=== PATIENT | male | born 1945 | race Caucasian/White ===

== ENCOUNTER 2019-07-13 17:36 | Inpatient (IN) | payer MEDICARE, OTHER ==
[2019-07-13] MEDS ORDERED: Acetaminophen 500 MG TAB ONE (18:00)
[2019-07-13 18:11] LABS: Hemoglobin 12.3 g/dL (14.0-18.0); Mean Corpuscular HGB CONC 34.4 g/dL (32.0-36.0); Mean Platelet Volume 7.5 fL (7.4-10.4); Platelet Count 63 thou/uL (130-400); RBC Distribution Width 14.2 % (11.5-14.5); Red Blood Cell (RBC) Count 3.33 mill/uL (4.70-6.10); White Blood Cell (WBC) Count 9.5 thou/uL (4.8-10.8)
--- NOTE | 2019-07-13 18:26 | RAD ---
PORTABLE CHEST: 07/13/19 HISTORY: Syncope. History of seizures. FINDINGS/IMPRESSION: Heart size is upper limits of normal. There are atherosclerotic changes of the aorta. The lungs are c lear. Of infiltrates. The bones are demineralized. POS: [facility]
[2019-07-13 18:28] LABS: ALT (SGPT) 24 U/L (8-55); AST (SGOT) 35 U/L (5-34); Albumin 4.4 g/dL (3.4-4.8); Alkaline Phosphatase 83 U/L (40-110); Anion Gap 22 mmol/L (10-20); BUN (Urea Nitrogen) 18 mg/dL (8.4-25.7); Bilirubin, Total 1.2 mg/dL (0.2-1.2); Calc. Creatinine Clearance 0 mL/min (70-130); Calcium 10.8 mg/dL (7.8-10.44); Carbon Dioxide 17 mmol/L (23-31); Chloride 105 mmol/L (98-107); Estimated GFR-MDRD 46; Globulin 3.7 g/dL (2.4-3.5); Glucose 180 mg/dL (83-110); Potassium 3.9 mmol/L (3.5-5.1); Protein, Total 8.1 g/dL (5.8-8.1); Sodium 140 mmol/L (136-145)
[2019-07-13 18:35] LABS: #Basophils 0.1 thou/uL (0.0-0.2); #Lymphocytes 0.8 thou/uL (1.20-3.40); #Monocytes 0.6 thou/uL (0.11-0.59); #Neutrophils 7.9 thou/uL (1.40-6.50); %Basophils 1.5 % (0.0-1.0); %Eosinophils 0.1 % (0.0-10.0); %Lymphocytes 8.7 % (21.0-51.0); %Monocytes 6.5 % (0.0-10.0); %Neutrophils 83.1 % (42.0-75.0); MDiff Complete? YES; Macrocytosis SLIGHT = 6-15 cells (100X) (0-5/hpf); Platelet Morphology Comment Appears Decreased; Polychromasia SLIGHT = 2-3 cells (100X) (0-2/hpf)
[2019-07-13] MEDS ORDERED: Vancomycin 1 GM/200 ML BAG ONE (18:47)
[2019-07-13] MEDS ORDERED: Cefepime 2 GM VIAL ONE (18:47)
[2019-07-13 18:55] LABS: Acetaminophen Less than 6.0 mcg/mL (10.0-30.0); Alcohol Less than 10 mg/dL (Less than 10); Salicylate Less than 8.0 mg/dL (15.0-30.0)
[2019-07-13 18:57] LABS: Bacteria/HPF None Seen HPF (None Seen); Bilirubin Negative (Negative); Blood, Urine 1+ (Negative); Clarity Clear (Clear); Glucose, Urine (Dipstick) 300 mg/dL (Negative); Leukocyte Negative Leu/uL (Negative); Nitrite Negative (Negative); Protein, Urine (Dipstick) 30 mg/dL (Neg-Trace); RBC/HPF 0-3 HPF (0-3); Squamous Epithelial 0-3 HPF (0-3); Urobilinogen Normal mg/dL (Less than 2); WBC/HPF 0-3 HPF (0-3)
[2019-07-13] MEDS ORDERED: Lorazepam 2 MG/ML VIAL ONE (19:00)
--- NOTE | 2019-07-13 19:07 | CT ---
Head CT without contrast 07/13/2019: Comparison: None HISTORY: Seizure TECHNIQUE: Axial CT imaging at 5 mm intervals from vertex through skull base without contrast FINDINGS: Visualized paranasal sinuses and mastoid air cells are well aerated. No displaced calvarial fracture. There is moderate diffuse cerebral and cerebellar volume loss. There is vascular calcification involving the cavernous carotid arteries and the distal vertebral arteries. No intracranial hemorrhage, midline shift, or mass effect. IMPRESSION: No intracranial hemorrhage noted.
[2019-07-13] MEDS ORDERED: levETIRAcetam 1000 MG/100 ML PREMIX BAG ONE (19:17)
[2019-07-13] MEDS ORDERED: Magnesium 2 GM/50 ML BAG (IN WATER) ONE (19:23)
[2019-07-13] MEDS ORDERED: Diltiazem 125 MG in Sodium Chloride 0.9% 100 ML IVPB SCH (20:15)
[2019-07-13 21:10] LABS: Lactic Acid 3.1 mmol/L (0.5-2.2)
[2019-07-13] MEDS ORDERED: Acetaminophen 650 MG Suppository ONE (23:04)
[2019-07-13] MEDS ORDERED: Ondansetron PF 4 MG/2 ML Vial IVP PRN (23:53)
[2019-07-13] MEDS ORDERED: Calcium Carbonate 500 MG ChewTAB PO PRN (23:53)
[2019-07-13] MEDS ORDERED: Acetaminophen 325 MG TAB PO PRN (23:53)
[2019-07-13] MEDS ORDERED: Ondansetron ODT 4 MG TAB PO PRN (23:53)
--- NOTE | 2019-07-14 00:03 | PDOC.FPRHP ---
- History of Present Illness Chief Complaint: Seizure History of Present Illness: 74yo CF with h/o seizure disorder presented via EMS with chief complaint of seizure. History obtained from son at bedside and ERMD as patient is alerted and A/O x0 at presentation. Son recently drove in from [place] to check on patient earlier today as patient stated he had been feeling unwell with increased fatigue over the past few days and wanted to be taken to the ER for evaluation. When son arrived, patient was weak, unsteady, and slightly confused but A/O x3. En route to ED, patient had seizure in the car. Son states patient gripped his R axilla and then had approx 30s of tonic-clonic movements and then passed out. He pulled to the side of the road and called EMS who transported to [facility]. Son states patient is usually A/O x3 and has no baseline dementia. He has a known seizure disorder and is followed by 2 different neurologist, one in [place] and one at [facility] in [place]. Son is unsure of all details but states patient was recently on a keppra wean. Son states patient had a very similar event to current presentation 2-3 years ago and at that time was placed on keppra. Son also states patient is recently 9mos ago and may have been drinking more of late, but unsure exact amount, but no history of EtOH abuse and no alcohol in the home today. ED Course: In the ED, his heart rate went from 100 to 180 and EKG was c/w SVT. Pt was given dilt iv push and then started on a dilt gtt with resolution of SVT. BCx and UCx obtained. COVID swab obtained. LP was attempted, however no CSF was able to be collected. Patient given Vanc and Cefepime Keppra 1g, Magnesium 1g, NS - Allergies/Adverse Reactions Allergies Allergy/AdvReac Type Severity Reaction Status Date / Time Unable to Assess Allergy Verified 07/13/19 20:03 - Home Medications Medication Instructions Recorded Confirmed Type Hydrochlorothiazide 12.5 mg PO DAILY 07/14/19 07/14/19 History Losartan [Cozaar] 50 mg PO DAILY 07/14/19 07/14/19 History Tamsulosin HCl 0.4 mg PO HS 07/14/19 07/14/19 History levETIRAcetam [Keppra] 500 mg PO BID 07/14/19 07/14/19 History - History PMHx: HTN, seizure disorder PSHx: Appy FHx: Unknown Social: From Son - recently . Lives alone. No Tob or illicit drug use. Unknown amount of EtOH use but no h/o abuse. - Review of Systems ROS unobtainable: due to mental status - Vital signs BP: 139/80 HR: 97 RR: 26 Tmax: 102.4 Pox: 97% on RA Wt: 79kg - Physical Exam Constitutional: NAD, well developed, other (A/O x0, GCS 12) HEENT: normocephalic and atraumatic, PERRLA, MMM Neck: supple, trachea midline Heart: RRR, normal S1/S2, no murmurs/rubs/gallops, pulses present, no edema Lungs: CTAB, no respiratory distress, good air movement, no rales/rhonchi, no wheezing Abdomen: soft, non-tender, bowel sounds present, no masses/distention Musculoskeletal: normal structure, normal tone Neurological: other (unable to fully assess due to mentation. Moves all ext spontaneously) Skin: no rash/lesions Heme/Lymphatic: no unusual bruising or bleeding Psychiatric: other (A/O x0) FMR H&P: Results - Labs Result Diagrams: 07/14/19 01:51 07/14/19 01:51 Lab results: WBC 9.5 thou/uL (4.8-10.8) 07/13/19 17:56 Hgb 12.3 g/dL (14.0-18.0) L 07/13/19 17:56 Hct 35.8 % (42.0-52.0) L 07/13/19 17:56 MCV 107.0 fL (78.0-98.0) H 07/13/19 17:56 Plt Count 63 thou/uL (130-400) L 07/13/19 17:56 Neutrophils % 83.1 % (42.0-75.0) H 07/13/19 17:56 Sodium 140 mmol/L (136-145) 07/13/19 17:56 Potassium 3.9 mmol/L (3.5-5.1) 07/13/19 17:56 Chloride 105 mmol/L (98-107) 07/13/19 17:56 Carbon Dioxide 17 mmol/L (23-31) L 07/13/19 17:56 BUN 18 mg/dL (8.4-25.7) 07/13/19 17:56 Creatinine 1.49 mg/dL (0.7-1.3) H 07/13/19 17:56 Glucose 180 mg/dL (83-110) H 07/13/19 17:56 Lactic Acid 3.1 mmol/L (0.5-2.2) H 07/13/19 20:47 Calcium 10.8 mg/dL (7.8-10.44) H 07/13/19 17:56 Total Bilirubin 1.2 mg/dL (0.2-1.2) 07/13/19 17:56 AST 35 U/L (5-34) H 07/13/19 17:56 ALT 24 U/L (8-55) 07/13/19 17:56 Alkaline Phosphatase 83 U/L (40-110) 07/13/19 17:56 Ammonia 31 umol/L (18-72) 07/13/19 17:56 Serum Total Protein 8.1 g/dL (5.8-8.1) 07/13/19 17:56 Albumin 4.4 g/dL (3.4-4.8) 07/13/19 17:56 Urine Ketones 40 mg/dL (Negative) A 07/13/19 18:23 Urine Blood 1+ (Negative) A 07/13/19 18:23 Urine Nitrite Negative (Negative) 07/13/19 18:23 Ur Leukocyte Esterase Negative Jacinta/uL (Negative) 07/13/19 18:23 Urine RBC 0-3 HPF (0-3) 07/13/19 18:23 Urine WBC 0-3 HPF (0-3) 07/13/19 18:23 Ur Squamous Epith Cells 0-3 HPF (0-3) 07/13/19 18:23 Urine Bacteria None Seen HPF (None Seen) 07/13/19 18:23 - EKG Interpretation EKG: Initial EKG: Sinus tachycardia with rate 117, no ST or T wave changes, axis normal Repeat EKG: SVT, rate 178, no acute ST or T wave changes, axis normal 3rd EKG: Sinus tachycardia, rate 113, no acute ST or T wave changes - Radiology Interpretation CT scan - head Status: report reviewed by me (no acute intracranial process) Chest x-ray Status: image reviewed by me (No acute CPP), report reviewed by me FMR H&P: A/P - Problem List (1) Seizure Current Visit: Yes Status: Acute Code(s): R56.9 - UNSPECIFIED CONVULSIONS (2) SVT (supraventricular tachycardia) Current Visit: Yes Status: Acute Code(s): I47.1 - SUPRAVENTRICULAR TACHYCARDIA (3) SIRS (systemic inflammatory response syndrome) Current Visit: Yes Status: Acute Code(s): R65.10 - SIRS OF NON-INFECTIOUS ORIGIN W/O ACUTE ORGAN DYSFUNCTION - Plan 74yo CF with h/o seizure disorder presented via EMS with chief complaint of seizure. #Seizure - known underlying seizure disorder with recent taper of keppra - underlying seizure disorder vs meningitis vs other infectious etiology - Unsuccessful LP in ED, ordered CT-guided LP by IR in AM - s/p Vanc and cefepime in ED, will cont vanc + rocephin - BCx pending - UA 40 ketones, 1+ blood, neg bacteria, neg nitrites, neg LE. UCx pending - CSF Gram stain, cell count, protein, glucose, and Cx pending - Given keppra loading dose in ED, will cont 500mg IV BID - consider neurology consult #SVT - suspected 2/2 infection - given loading dilt and on dilt gtt - monitor on tele - will titrate off dilt gtt as appropriate - cont MIVF #SIRS without source - BCx, UCx pending - LP in AM with studies - exam without focal source of infection - COVID pending #Lactic Acidosis - LA 6.7 -> 3.1 - seizure vs infectious, will trend #COVID PUI - Pending - will obtain flu swab #Acute encephalopathy - suspect post-ictal vs infectious - will cont to monitor mentation - A/O x3 at baseline #AZAM vs CKD - Cr 1.49, BUN 18 - no baseline labs available for comparison - s/p IV bolus in ED, will cont MIVF and monitor #HTN - cont home meds and monitor #Potential EtOH abuse - EtOH lv neg, ASA and APAP lv neg - LFTS WNL - low suspicion, will monitor PCP: CC - None Code: Full - per son, patient unable to make medical decisions 03/21 mentation IVF: LR @ 120cc/hr Diet: NPO pending speech eval VTE: Lovenox Disposition/LOS: Admit to CCU. Workup pending. Anticipate LOS >48hrs. FMR H&P: Upper Level - Pertinent history 74 yo M here via EMS with complaint of seizure. At the time of exam, put is A& Ox0 and all hx comes from his son. His son states that he had not been feeling well for the past few days and asked that he be taken to the ER. His symptoms leading up to today include general malaise and unsteadiness. While in route pt had a seizure in the vehicle. The son called EMS from roadside who met them and brought him the rest of the way her. Per son, he has a hx of a seizure disorder which has had work up by 2 different neurologists outpatient. He had apparently been tapering his keppra at home. In the ED, his heart rate went from 100 to 180 and EKG was c/w SVT. Pt was given dilt iv push and then started on a dilt gtt with resolution of SVT. Also of note pt had been drinking wine more often recently since the passing of his , however the son does not know how much and pt does not have a hx of etoh abuse. There was apparently no alcohol in the home today. In the ED blood and urine cultures were drawn and pt was swabbed for COVID19. LP was attempted, however no CSF was able to be collected. PMHx HTN Seizure disorder nos BPH Surgical hx Appendectomy Social hx Intermittent etoh use. No tobacco or illicit drugs. - Pertinent findings See commander internal affairs note for full ROS, PE, vitals, and labs ROS via son General denies fever or chills. Complains of disorientation CV Denies CP, palpitation, or peripheral edema Resp Denies SOB or cough GI Denies n/v/d/c denies increased frequency or dysuria Neuro complains of seizure PE General A&O x0, will answer questions however answers are inappropriate HEENT NCAT CV tachycardic, no murmur Resp CTA, no respiratory distress Abd Non tender normal BS no distension Extremities no edema, equal pedal pulses Neuro no focal deficits Skin intact, no lesions or rashes - Plan Date/Time: 07/14/19 Larry León DO, have evaluated this patient and agree with findings/plan as outlined by commander internal affairs resident. Pertinent changes/additions are listed here. 1.SIRS -Infectious etiology vs seizure. Unclear source at time, if infectious DDx includes meningitis, bacteremia, PNA, COVID19, other viral infection. -Continue abx until cultures result. Will plan for IR LP tomorrow. -Currently hemodynamically stable -RVP pending -Bolus IVF to complete 30 mg/kg resuscitation 2.Seizure disorder -Restart home keppra. This could certainly be the source of his AMS. Consider neuro consult 3.SVT, resolved -Monitor on tele 4.HTN -Home meds PPx lovenox Diet NPO Code Full Addendum - Attending - Attending Attestation Date/Time: 07/14/19 4942 I personally evaluated the patient and discussed the management with Dr. Canada and Violet in the ER at time of admission. I agree with the History, Examination, Assessment and Plan documented above with any addition or exceptions noted below. Discussed car eplan with son who was present. Etiology of infectious cause of fever unknoen. Empiricla tx inititated and tests underway. Mental status slightly improved from earlier. He is responding with single words appropriately, but somnolent.
[2019-07-14] MEDS: cefTRIAXone\\ROCEPHIN 2 GM in Sodium Chloride 0.9% 100 ML IVPB SCH ×2 (00:37→11:51)
[2019-07-14] MEDS: Lactated Ringer's 1,000 ML IV SCH ×4 (00:37→20:01)
[2019-07-14 02:02] LABS: #Lymphocytes 0.4 thou/uL (1.20-3.40); #Monocytes 0.9 thou/uL (0.11-0.59); #Neutrophils 5.2 thou/uL (1.40-6.50); %Basophils 0.3 % (0.0-1.0); %Eosinophils 0.1 % (0.0-10.0); %Lymphocytes 5.9 % (21.0-51.0); %Monocytes 14.4 % (0.0-10.0); %Neutrophils 79.3 % (42.0-75.0); Hemoglobin 10.5 g/dL (14.0-18.0); Mean Corpuscular HGB CONC 34.1 g/dL (32.0-36.0); Mean Corpuscular Hemoglobin 36.6 pg (27.0-31.0); Mean Platelet Volume 7.6 fL (7.4-10.4); Platelet Count 45 thou/uL (130-400); RBC Distribution Width 14.1 % (11.5-14.5); Red Blood Cell (RBC) Count 2.88 mill/uL (4.70-6.10); White Blood Cell (WBC) Count 6.5 thou/uL (4.8-10.8)
[2019-07-14 02:34] LABS: Anion Gap 14 mmol/L (10-20); BUN (Urea Nitrogen) 15 mg/dL (8.4-25.7); Calc. Creatinine Clearance 54 mL/min (70-130); Calcium 9.2 mg/dL (7.8-10.44); Carbon Dioxide 21 mmol/L (23-31); Chloride 107 mmol/L (98-107); Estimated GFR-MDRD 58; Glucose 121 mg/dL (83-110); Potassium 3.4 mmol/L (3.5-5.1); Sodium 139 mmol/L (136-145)
[2019-07-14] MEDS: Vancomycin 1.5 GRAM/300 ML BAG 1.5 GM in Premix Bag 1 BAG IVPB SCH (05:16)
--- NOTE | 2019-07-14 06:12 | PDOC.FM ---
- Subjective Subjective: Pt states he does not know why he is here this morning. He denies chest pain, trouble breathing, headache, weakness, changes in sensation. - Objective MAR Reviewed: Yes Vital Signs & Weight: Vital Signs (12 hours) Temp Pulse Ox 07/14/19 05:00 98.5 F 07/14/19 00:25 98 07/13/19 23:45 99.3 F Weight Weight 74.4 kg Most Recent Monitor Data Heart Rate from ECG 74 NIBP 127/71 NIBP BP-Mean 89 Respiration from ECG 23 SpO2 98 I&O: 07/12/19 07/13/19 07/14/19 06:59 06:59 06:59 Intake Total 658 Balance 658 Result Diagrams: 07/14/19 01:51 07/14/19 01:51 Phys Exam - Physical Examination Constitutional: NAD HEENT: PERRLA, moist MMs, oral pharynx no lesions Neck: no JVD, full ROM Respiratory: no wheezing, clear to auscultation bilateral Cardiovascular: RRR, no significant murmur Gastrointestinal: soft, non-tender, no distention, positive bowel sounds Musculoskeletal: no edema, pulses present Neurological: normal sensation, moves all 4 limbs Deviation from normal: Oriented to person and place, not to time, answer questions correct, Speech appears to be normal Skin: cap refill <2 seconds Dx/Plan (1) SIRS (systemic inflammatory response syndrome) Code(s): R65.10 - SIRS OF NON-INFECTIOUS ORIGIN W/O ACUTE ORGAN DYSFUNCTION Status: Acute (2) SVT (supraventricular tachycardia) Code(s): I47.1 - SUPRAVENTRICULAR TACHYCARDIA Status: Acute (3) Seizure Code(s): R56.9 - UNSPECIFIED CONVULSIONS Status: Acute - Plan Plan: This is a 74 yo male with a pmh of HTN and a seizure disorder Tonic clonic seizure -Known seizure disorder with recent taper in home keppra -Likely 2/2 seizure disorder vs meningitis -Pending IR LP and CSF studies -On Vancomycin and Rocephin -Pending blood cultures -Procal 0.26 -Pt will likely be transferred to medical later today SVT, likely 2/2 underlying conditions -Will treat conditions and stop diltiazem drip -Likely improved with IV fluids Macrocytic anemia -Slight decrease in Hgb to 10.5, likely dilutional -Pending B12, RBC folate, iron studies Thromocytopenia -Plt 45, will monitor SIRS -Flu neg -Pending blood and urine cultures Lactic acidosis, resolved COVID PUI -Pending covid test Acute encephalopathy, improving -Treating as above, baseline AAOx3 AZAM vs CKD improving -Will monitor with serial BMPs and continue IV fluids until he can tolerate PO HTN -Currently non-hypertensive, will hold meds until pt can tolerate PO Potential alcohol abuse -Will monitor Code: Full Prophylaxis: SCDs, pepcid Family: none at bedside Fluids: LR 120ml/hr Drips: Diltiazem Disposition: DC in 3-4 days, will likely need placement PCP: RENEE Addendum - Attending - Attending Attestation Date/Time: 07/14/19 8047 I personally evaluated the patient and discussed the management with Dr. Chirinos. I agree with the History, Examination, Assessment and Plan documented above with any addition or exceptions noted below. Patient here for seizure activity in the setting of medication wean. He is currently pending COVID swab results. Suspect this may be due to his medical therapy change, but due to his malaise in the previous day, would advise obtaining the LP today with IR as unable to perform yesterday in ED. Continue broad spec abx, await cultures. Monitor mentation through the day. Continue Keppra IV. HR improved as are his lab values, which were likely abnormal transiently as a result of his seizure activity.
[2019-07-14] MEDS: Potassium Chloride 20 MEQ in Premix Bag 1 BAG IVPB SCH ×2 (08:52→10:51)
[2019-07-14] MEDS ORDERED: Famotidine/PF 20 mg/2ml Vial SLOW IVP SCH (09:00)
[2019-07-14] MEDS ORDERED: Enoxaparin Sodium 40 MG/0.4 ML SYRINGE SC SCH (09:00)
[2019-07-14] MEDS ORDERED: Potassium Chloride 20 MEQ/100 ML PREMIX BAG IVPB SCH (09:00)
--- NOTE | 2019-07-14 09:53 | CON ---
DATE OF CONSULTATION: 07/14/2019 REASON FOR CONSULTATION: The patient in the ICU. HISTORY OF PRESENT ILLNESS: The patient is a 74-year-old male, who came to the hospital last night, feeling unwell, confused, and then had a 30-second tonic-clonic seizure. Apparently, he had been attempting to wean off his Keppra. He had a fever of 102. He has been thrown in COVID isolation. PAST MEDICAL HISTORY: 1. Hypertension. 2. Seizure disorder. PAST SURGICAL HISTORY: Appendectomy. SOCIAL HISTORY: Not sure about alcohol use, but apparently that has been a problem and does not smoke. Does not use illicit drugs. MEDICATIONS: Prior to admission; 1. Keppra. 2. Tamsulosin. 3. Cozaar. 4. Hydrochlorothiazide. PHYSICAL EXAMINATION: VITAL SIGNS: Temperature 98.5, pulse 78, blood pressure 130/70, and O2 saturation 99%. HEENT: Unremarkable. NECK: No adenopathy or JVD. LUNGS: Clear. CARDIAC: S1 and S2, regular. ABDOMEN: Soft and nontender. EXTREMITIES: No edema. NEUROLOGIC: Nonfocal. IMAGING DATA: Chest x-ray, fairly clear. Head CT, no acute findings. LABORATORY DATA: Sodium 139, potassium 3.4, BUN 15, creatinine 1.2, and glucose 121. White blood cell count 6.5, hematocrit 30, and platelet count 45. ASSESSMENT: 1. Seizure disorder. 2. Possible alcohol abuse. 3. Fever. PLAN: The patient is currently covered with antibiotics. He is being ruled out for COVID. Once that test is negative, he can be transferred to the floor. Possibly getting an LP at a later time. Job ID: [id number]
[2019-07-14 11:01] LABS: SARS-CoV-2 MS2 Positive; SARS-CoV-2 N Gene Negative; SARS-CoV-2 S Gene Negative; SARS-CoV-2 orf1ab Negative
[2019-07-15] MEDS: cefTRIAXone\\ROCEPHIN 2 GM in Sodium Chloride 0.9% 100 ML IVPB SCH ×2 (00:57→15:10)
[2019-07-15 04:18] LABS: Anion Gap 16 mmol/L (10-20); BUN (Urea Nitrogen) 17 mg/dL (8.4-25.7); Calc. Creatinine Clearance 65 mL/min (70-130); Calcium 9.3 mg/dL (7.8-10.44); Carbon Dioxide 20 mmol/L (23-31); Chloride 107 mmol/L (98-107); Estimated GFR-MDRD 70; Glucose 82 mg/dL (83-110); Iron 41 ug/dL (65-175); Iron Binding Capacity, Total 248 mcg/dL (261-462); Potassium 3.6 mmol/L (3.5-5.1); Sodium 139 mmol/L (136-145)
[2019-07-15 04:27] LABS: #Lymphocytes 0.5 thou/uL (1.20-3.40); #Monocytes 0.7 thou/uL (0.11-0.59); #Neutrophils 4.9 thou/uL (1.40-6.50); %Basophils 0.5 % (0.0-1.0); %Eosinophils 0.5 % (0.0-10.0); %Lymphocytes 7.8 % (21.0-51.0); %Monocytes 11.9 % (0.0-10.0); %Neutrophils 79.3 % (42.0-75.0); Mean Corpuscular HGB CONC 32.9 g/dL (32.0-36.0); Mean Corpuscular Hemoglobin 36.2 pg (27.0-31.0); Mean Platelet Volume 8.3 fL (7.4-10.4); Platelet Count 51 thou/uL (130-400); RBC Distribution Width 14.2 % (11.5-14.5); Red Blood Cell (RBC) Count 2.75 mill/uL (4.70-6.10); White Blood Cell (WBC) Count 6.2 thou/uL (4.8-10.8)
[2019-07-15 04:28] LABS: MDiff Complete? YES; Macrocytosis SLIGHT = 6-15 cells (100X) (0-5/hpf); Platelet Morphology Comment Appears Decreased
[2019-07-15] MEDS: Vancomycin 1.5 GRAM/300 ML BAG 1.5 GM in Premix Bag 1 BAG IVPB SCH (05:47)
--- NOTE | 2019-07-15 06:54 | PDOC.FM ---
- Subjective Subjective: NAEO. Denies chest pain, SOB, headaches, neck pain - Objective MAR Reviewed: Yes Vital Signs & Weight: Vital Signs (12 hours) Temp BP Pulse Ox 07/15/19 04:00 165/87 H 07/15/19 03:40 97.5 F L 07/14/19 23:41 154/69 H 07/14/19 23:22 97.2 F L 07/14/19 20:00 154/69 H 100 07/14/19 19:19 98.1 F Weight Admit Weight 73.482 kg Weight 84.368 kg Most Recent Monitor Data Heart Rate from ECG 70 NIBP 152/88 NIBP BP-Mean 109 Respiration from ECG 24 SpO2 98 I&O: 07/13/19 07/14/19 07/15/19 06:59 06:59 06:59 Intake Total 658 2856 Output Total 825 Balance 658 1 Result Diagrams: 07/15/19 03:18 07/15/19 03:18 Phys Exam - Physical Examination Constitutional: NAD HEENT: PERRLA, moist MMs Neck: no JVD, full ROM Respiratory: no wheezing, clear to auscultation bilateral Cardiovascular: RRR, no significant murmur Gastrointestinal: soft, non-tender, no distention, positive bowel sounds Musculoskeletal: no edema, pulses present Neurological: non-focal, normal sensation, moves all 4 limbs CN2-12 intact, cerebellar testing normal AAO to person only, [facility], 194 Skin: cap refill <2 seconds Dx/Plan (1) SIRS (systemic inflammatory response syndrome) Code(s): R65.10 - SIRS OF NON-INFECTIOUS ORIGIN W/O ACUTE ORGAN DYSFUNCTION Status: Acute (2) SVT (supraventricular tachycardia) Code(s): I47.1 - SUPRAVENTRICULAR TACHYCARDIA Status: Acute (3) Seizure Code(s): R56.9 - UNSPECIFIED CONVULSIONS Status: Acute - Plan Plan: This is a 74 yo male with a pmh of HTN and a seizure disorder Tonic clonic seizure -Known seizure disorder with recent taper in home keppra -Likely 2/2 seizure disorder vs meningitis, no physical signs of meningitis -Pending IR LP and CSF studies -On Vancomycin and Rocephin -Pending blood cultures -Procal 0.26 SVT, likely 2/2 underlying conditions -No events in last 24hr Macrocytic anemia -Appears to be anemia of chronic disease Thromocytopenia -will monitor SIRS, resolved -Pending blood and urine cultures Lactic acidosis, resolved COVID negative Acute encephalopathy -Treating as above, baseline AAOx3 AZAM, resolved HTN -Restarting home medications Addendum - Attending - Attending Attestation Date/Time: 07/15/19 1140 I personally evaluated the patient and discussed the management with Dr. Chirinos. I agree with the History, Examination, Assessment and Plan documented above with any addition or exceptions noted below. Patient improved. Mentation near baseline. Awaiting LP today though currently low suspicion for meningitis. Continue Keppra. Further mgmt pending LP result.
[2019-07-15 07:05] LABS: Ferritin 643.32 ng/mL (22-322)
[2019-07-15] MEDS ORDERED: Hydrochlorothiazide 25 MG TAB PO SCH (09:00)
--- NOTE | 2019-07-15 09:44 | PRG ---
DATE OF SERVICE: 07/15/2019 SUBJECTIVE: The patient remains somewhat confused, although pleasant. OBJECTIVE: VITAL SIGNS: Temperature 99.3, pulse blood pressure 152/88, O2 saturation 98%. HEENT: Clear. NECK: No adenopathy or JVD. CHEST: Clear. CARDIAC: S1 and S2. Regular. ABDOMEN: Soft. EXTREMITIES: No edema. LABORATORY DATA: White blood cell count 6.2, hematocrit 30, and platelet count 51. Sodium 139, potassium 3.6, BUN 17, creatinine 1.0, and glucose 82. ASSESSMENT: 1. Seizure disorder. 2. Possible alcohol abuse. 3. Fever. PLAN: Still awaiting LP. The patient remains on antibiotics, probably stable for transfer to medical floor. Job ID: [id number]
[2019-07-15] MEDS: Lactated Ringer's 1,000 ML IV SCH ×2 (11:09→19:05)
[2019-07-15] MEDS: Losartan 25 MG TAB PO SCH (11:10)
[2019-07-15] MEDS ORDERED: Lorazepam 2 MG/ML VIAL SLOW IVP PRN (13:51)
--- NOTE | 2019-07-15 14:59 | RAD ---
Exam: Lumbar puncture with fluoroscopic guidance HISTORY: Concern for meningitis FINDINGS: Successful lumbar puncture. A total of 8 cc of clear CSF was acquired TECHNIQUE: Consent obtained to perform a lumbar puncture. The L2-L3 level was deemed appropriate. Ski n was prepped and draped in a sterile fashion. 1% lidocaine, buffered with sodium bicarbonate was used for local anesthesia. Under was, guidance, a 22-gauge spinal needle was advanced into the CSF sp yogesh at the L2-L3 level. Total of 8 cc of clear CSF was acquired. Patient tolerated the procedure well. No immediate or postprocedure complications. IMPRESSION: Successful lumbar puncture
[2019-07-15 15:09] LABS: CSF Source CSF; Clarity Clear (Clear); Tube # 4
[2019-07-15] MEDS ORDERED: Ziprasidone 20 MG VIAL IM PRN (16:51)
[2019-07-15] MEDS: levETIRAcetam 500 MG TAB PO SCH (20:31)
[2019-07-15] MEDS ORDERED: Tamsulosin HCl 0.4 MG CAP PO SCH (21:00)
[2019-07-16] MEDS: cefTRIAXone\\ROCEPHIN 2 GM in Sodium Chloride 0.9% 100 ML IVPB SCH (01:08)
[2019-07-16 05:31] LABS: Anion Gap 14 mmol/L (10-20); BUN (Urea Nitrogen) 18 mg/dL (8.4-25.7); Calc. Creatinine Clearance 80 mL/min (70-130); Calcium 9.6 mg/dL (7.8-10.44); Carbon Dioxide 21 mmol/L (23-31); Chloride 104 mmol/L (98-107); Estimated GFR-MDRD 78; Glucose 88 mg/dL (83-110); Potassium 3.6 mmol/L (3.5-5.1); Sodium 135 mmol/L (136-145); Vancomycin, Trough 8.6 ug/mL
[2019-07-16 05:52] LABS: Band 1 % (5-11); Eosinophils 2 % (0-10); Hemoglobin 10.2 g/dL (14.0-18.0); Lymphocytes 16 % (21-51); MDiff Complete? YES; Mean Corpuscular Hemoglobin 36.2 pg (27.0-31.0); Mean Platelet Volume 7.3 fL (7.4-10.4); Monocytes 11 % (0-10); Neutrophil 70 % (42-75); Platelet Count 65 thou/uL (130-400); Platelet Morphology Comment Appears Decreased; Red Blood Cell (RBC) Count 2.83 mill/uL (4.70-6.10); White Blood Cell (WBC) Count 5.3 thou/uL (4.8-10.8)
[2019-07-16] MEDS ORDERED: Vancomycin 1 GM in Premix Bag 1 BAG IVPB SCH (06:00)
--- NOTE | 2019-07-16 06:05 | PDOC.FM ---
- Subjective Subjective: Nursing reports pt was more confused overnight. She denies any combative behavior but he asked inappropriate questions. - Objective MAR Reviewed: Yes Vital Signs & Weight: Vital Signs (12 hours) Temp Pulse Resp BP Pulse Ox 07/16/19 03:57 98.3 F 83 17 07/16/19 03:54 154/81 H 07/16/19 00:08 92 98 07/16/19 00:07 99.6 F 07/15/19 21:35 98.8 F 07/15/19 20:00 156/91 H Weight Admit Weight 73.482 kg Weight 83.007 kg Most Recent Monitor Data Heart Rate from ECG 95 NIBP 165/85 NIBP BP-Mean 111 Respiration from ECG 21 SpO2 100 I&O: 07/14/19 07/15/19 07/16/19 06:59 06:59 06:59 Intake Total 658 2856 1222.9 Output Total 825 1050 Balance 658 2031 172.9 Result Diagrams: 07/16/19 05:01 07/16/19 05:01 Phys Exam - Physical Examination Constitutional: NAD HEENT: moist MMs Neck: no JVD, full ROM Respiratory: no wheezing, no rales, clear to auscultation bilateral Cardiovascular: RRR, no significant murmur, no rub Gastrointestinal: soft, non-tender, no distention, positive bowel sounds Musculoskeletal: no edema, pulses present Neurological: normal sensation, moves all 4 limbs Deviation from normal: Oriented to person, oriented to place with some prompting , 2004 Skin: normal turgor, cap refill <2 seconds Dx/Plan (1) SIRS (systemic inflammatory response syndrome) Code(s): R65.10 - SIRS OF NON-INFECTIOUS ORIGIN W/O ACUTE ORGAN DYSFUNCTION Status: Acute (2) SVT (supraventricular tachycardia) Code(s): I47.1 - SUPRAVENTRICULAR TACHYCARDIA Status: Acute (3) Seizure Code(s): R56.9 - UNSPECIFIED CONVULSIONS Status: Acute - Plan Plan: This is a 74 yo male with a pmh of HTN and a seizure disorder Tonic clonic seizure -Known seizure disorder with recent taper in home keppra -Likely 2/2 seizure disorder -CSF studies not suggestive of meningitis, blood cultures negative at 48 hours, stopping abx SVT, likely 2/2 underlying conditions -No events in last 48 hr Macrocytic anemia -Appears to be anemia of chronic disease Thromocytopenia, improving -will monitor SIRS, resolved Lactic acidosis, resolved COVID negative Acute encephalopathy -Treating as above, baseline AAOx3 -May have some underlying dementia exacerbated by hospitalization AZAM, resolved HTN -Restarting home medications, son states he has poor compliance and neurologist has been managing BP meds. Addendum - Attending - Attending Attestation Date/Time: 07/16/19 0125 I personally evaluated the patient and discussed the management with Dr. Chirinos. I agree with the History, Examination, Assessment and Plan documented above with any addition or exceptions noted below. Patient here with seizure likely 2/2 med weaning. He has had no recurrence. LP did not reveal infectious or inflammatory process. Will discuss with family but he is likely medically stable for discharge today.
[2019-07-16 07:27] VITALS: TEMP 99.4
[2019-07-16] MEDS ORDERED: Amlodipine 5 MG TAB PO SCH (09:00)
[2019-07-16] MEDS: Losartan 25 MG TAB PO SCH (09:00)
[2019-07-16] MEDS: levETIRAcetam 500 MG TAB PO SCH (09:00)
[2019-07-16 13:06] VITALS: BP 145/88
[2019-07-16 13:56] VITALS: BMI 25.5
[2019-07-16 16:13] LABS: RBC Folate Test Component 924 ng/mL (>498)
--- NOTE | 2019-07-17 04:51 | DIS ---
DATE OF ADMISSION: 07/13/2019 DATE OF DISCHARGE: 07/16/2019 ADMITTING ATTENDING: Dr. Hector Olivia. DISCHARGING ATTENDING: Dr. Joaquin Dixon. RESIDENT: Bulmaro Chirinos DO CONSULTS: Dr. Luis Palomares, Pulmonology Critical Care. PROCEDURES: 1. Lumbar puncture with fluoroscopy guidance involving a successful LP. 2. Full chest x-ray showing heart size at upper limits of normal, some atherosclerotic changes in the aorta. Lungs are clear of infiltrates. Bones are demineralized. 3. CT of brain, no intracranial hemorrhage noted. DISCHARGE MEDICATIONS: 1. Amlodipine 5 mg p.o. daily. 2. Escitalopram 10 mg p.o. daily. 3. Keppra 500 mg p.o. b.i.d. 4. Losartan 25 mg p.o. daily at one-half tablet daily. 5. Tamsulosin 0.4 mg p.o. at bedtime. DISCONTINUED MEDICATIONS: Hydrochlorothiazide. BRIEF HISTORY OF PRESENT ILLNESS/HOSPITAL COURSE: This is a 74-year-old male with past medical history of unknown seizure disorder, who presented to the ER with chief complaint of seizure. History obtained from the son states that the patient had been feeling bad earlier today prior to arrival when he called. He had multiple episodes of vomiting and decreased p.o. intake for the last 3 days. Son was driving the patient to the ER when he had a seizure en route, at that point called EMS, they taken the rest of the way. The son reports the patient has been altered during his stay. The patient had a documented fever in the ER. In addition, the patient had SVT of 180 in the ER and was started on diltiazem drip. He was moved to ICU for this reason. The patient also had a COVID swab obtained. There was an attempted LP in the ER that was failed and subsequently done by IR. The patient was admitted and started on broad-spectrum antibiotics. He had a fever and a seizure. With concern for meningitis with altered mental status and seizure, the patient was given vancomycin and Rocephin. COVID test came back negative. Blood cultures negative at 48 hours. LP is not suggestive of infection based on CSF studies. The patient was found to be improving some, PT evaluated and did not deem the patient was a candidate for inpatient rehab or home health physical therapy. Of note, the patient was also reported to be on a Keppra wean for his seizures based on Neurology recommendations. During his hospital stay, he gradually improved. Family states that he is not completely back to baseline mentation, but we discussed at length this may take some time. The patient and family were given ER precautions. The patient was sent home. Two brothers report that they will be able to help take care of him while he is there and follow up with me outpatient. I talked at length with brothers, , who state that he has been drinking some recently after loss of his of 56 years. I encouraged him to hold off on drinking for the next 2 weeks. In addition, we started Lexapro for his depression, which he has been suffering since this loss. I suggested blood pressure medications based on the possibility of being dehydrated. The patient was stopped hydrochlorothiazide. He did have high blood pressure during this time. He will again continue checking his blood pressure at home while he is on amlodipine and losartan. DISPOSITION: Stable. DISCHARGE INSTRUCTIONS: 1. Location: Home. 2. Diet: Regular diet. 3. Activity: As tolerated. 4. Followup: Follow up with myself, Dr. Chirinos, in 1 to 2 weeks. Job ID: [id number]
--- NOTE | 2019-07-19 04:01 | PQF ---
[employer] Crystal Reports Winform Viewer DEUCE RDZ JASON MD *terra* [id number] [facility]- 0 [id number] CLINICAL DOCUMENTATION CLARIFICATION FORM: POST DISCHARGE Addendum to original discharge summary date: ____ Late entry note date: __ DATE: 07/19/19 ATTN:Debora Nuñez Please exercise your independent, professional judgment in responding to the clarification form. Clinical indicators are provided on the bottom of this form for your review Can you please further clarify the specificity of Acute encephalopathy? Please check appropriate box(s): [ ] Acute Toxic Encephalopathy [ ] Acute Metabolic Encephalopathy [ X] Other diagnosis please specify post ictal state [ ] Unable to determine In addition, please specify: Present on Admission (POA): [ X ] Yes [ ] No [ ] Unable to determine For continuity of documentation, please document condition throughout progress notes and discharge summary. Thank You. CLINICAL INDICATORS - SIGNS / SYMPTOMS / LABS H and P pg.2- altered mental status H and P pg.5- acute encephalopathy- suspect post ictal vs infectious Family PN pg.1- pt was more confused overnight. Denies any combative behavior DS pg.1- Presented to ER with chief complaint of seizure. DS pg.1- the patient has been altered during his stay RISK FACTORS SIRS- H and P pg.4 seizure- H and P pg.4 CKD vs AZAM- H and P pg.4 alcohol abuse- PN p.1 74 years old- H and P pg.1 TREATMENTS: CT Syd 07/12 Chest X ray 07/12 Lumbar Puncture- 07/14 IV fluids- MAR Blood culture- Microbiology IV Antibiotics- MAR Keppra 500mg PO- MAR (This form is maintained as a part of the permanent medical record) 2014 [employer]. All Rights Reserved [email or web address]
--- NOTE | 2019-07-24 14:08 | EKG ---
Test Reason : Blood Pressure : / mmHG Vent. Rate : 117 BPM Atrial Rate : 117 BPM P-R Int : 160 ms QRS Dur : 092 ms QT Int : 340 ms P-R-T Axes : 044 -27 031 degrees QTc Int : 474 ms Sinus tachycardia Otherwise normal ECG Confirmed by AGNIESZKA EAGLE DO ([id number]), slot editor KWASI NICOLE ([id number]) on 07/24/2019 2:08:28 PM Referred By: Confirmed By:AGNIESZKA EAGLE DO
== END 2019-07-16 14:30 | disposition home or self-care (01) | DRG 101 ==
LOC: ERS 17:36 → CCU 23:49 → IMCU/EMU 07-14 18:02
PROVIDERS: ADMIT Family Medicine; ATTEND Family Medicine
PROC: 8E0ZXY6 Isolation (ICD-10-PCS; 2019-07-13)
PROC: 009U3ZX Drainage of Spinal Canal, Percutaneous Approach, Diagnostic (ICD-10-PCS; principal; 2019-07-15)
PROC: B01BZZZ Fluoroscopy of Spinal Cord (ICD-10-PCS; 2019-07-15)
DX: G40.909 Epilepsy, unspecified, not intractable, without status epilepticus (principal); I47.1 Supraventricular tachycardia; N17.9 Acute kidney failure, unspecified; G93.40 Encephalopathy, unspecified; E87.2 Acidosis; R65.10 Systemic inflammatory response syndrome (SIRS) of non-infectious origin without acute organ dysfunction; Z20.828 Contact with and (suspected) exposure to other viral communicable diseases; I12.9 Hypertensive chronic kidney disease with stage 1 through stage 4 chronic kidney disease, or unspecified chronic kidney disease; N40.0 Benign prostatic hyperplasia without lower urinary tract symptoms; D69.6 Thrombocytopenia, unspecified; D53.9 Nutritional anemia, unspecified; D63.1 Anemia in chronic kidney disease; R50.9 Fever, unspecified; N18.9 Chronic kidney disease, unspecified; Z79.899 Other long term (current) drug therapy; Z90.49 Acquired absence of other specified parts of digestive tract
CPT/HCPCS: 36415; 51701; 62270; 70450; 71045; 80048; 80053; 80202; 80307; 81003; 81015; 82140; 82607; 82728; 82747; 82945; 83540; 83550; 83605; 84145; 84157; 85014; 85025; 87040; 87070; 87086; 87205; 87635; 87804; 89051; 93005; 96361; 96365; 96366; 96367; 96368; 96375; 96376; J0692; J0696; J1953; J2060; J3370; J3475; J3480; J3490; U0003

== ENCOUNTER 2020-01-11 17:46 | Emergency (ER) | payer MEDICARE ==
[2020-01-11 18:45] LABS: #Lymphocytes 0.5 thou/uL (1.20-3.40); #Monocytes 0.7 thou/uL (0.11-0.59); #Neutrophils 10.1 thou/uL (1.40-6.50); %Eosinophils 0.1 % (0.0-10.0); %Lymphocytes 4.4 % (21.0-51.0); %Monocytes 6.1 % (0.0-10.0); %Neutrophils 89.3 % (42.0-75.0); Hemoglobin 13.3 g/dL (14.0-18.0); Mean Corpuscular Hemoglobin 36.7 pg (27.0-31.0); Prothrombin Time 13.1 sec (12.0-14.7); RBC Distribution Width 13.1 % (11.5-14.5); Red Blood Cell (RBC) Count 3.62 mill/uL (4.70-6.10); White Blood Cell (WBC) Count 11.3 thou/uL (4.8-10.8)
[2020-01-11 18:46] LABS: PTT 30.8 sec (22.9-36.1)
--- NOTE | 2020-01-11 18:47 | CT ---
Head CT without contrast 01/11/2020: COMPARISON: 10/29/2019 HISTORY: Injury, trauma, pain TECHNIQUE: Axial CT imaging at 5 mm intervals from vertex through skull base without contrast FINDINGS: There is a mildly displaced nasal bone fracture on the left. The visualized paranasal sinus es and mastoid air cells are grossly unremarkable. There is moderate cerebral volume loss with associated prominence of the CSF containing. Periventricular hypodensity suggests small vessel disease. No intracranial hemorrhage, midline shift, or mass effect. IMPRESSION: Left nasal bone fracture. No intracranial hemorrhage or displaced calvarial fracture.
[2020-01-11] MEDS ORDERED: Lidocaine 1% w/Epinephrine 1:100K 20 ML VIAL ONE (18:50)
[2020-01-11] MEDS ORDERED: Boostrix 0.5 ML (Tdap) VIAL ONE (18:50)
[2020-01-11 19:03] LABS: Hypochromia SLIGHT = 6-15 cells (100X) (0-5/hpf); MDiff Complete? YES; Macrocytosis SLIGHT = 6-15 cells (100X) (0-5/hpf); Mean Platelet Volume 7.3 fL (7.4-10.4); Platelet Count 100 thou/uL (130-400); Platelet Morphology Comment Appears Decreased
[2020-01-11 19:10] LABS: ALT (SGPT) 40 U/L (8-55); AST (SGOT) 50 U/L (5-34); Alkaline Phosphatase 115 U/L (40-110); Anion Gap 23 mmol/L (10-20); BUN (Urea Nitrogen) 10 mg/dL (8.4-25.7); CK (CPK) 129 U/L (30-200); Calc. Creatinine Clearance 0 mL/min (70-130); Calcium 9.9 mg/dL (7.8-10.44); Carbon Dioxide 21 mmol/L (23-31); Chloride 101 mmol/L (98-107); Estimated GFR-MDRD 61; Globulin 3.6 g/dL (2.4-3.5); Glucose 135 mg/dL (83-110); Potassium 4.1 mmol/L (3.5-5.1); Protein, Total 7.6 g/dL (5.8-8.1); Sodium 141 mmol/L (136-145)
--- NOTE | 2020-01-11 19:24 | RAD ---
RADIOGRAPH CHEST 1 VIEW: 01/11/20 at 7:12 p.m. HISTORY: 74-year-old male status post acute chest trauma due to fall. FINDINGS: There are no air space densities, pulmonary edema, pneumothorax, or cardiomegaly. The lateral costop hrenic angles are sharp. IMPRESSION: No acute cardiopulmonary findings. xavi [] POS: JIN
--- NOTE | 2020-01-11 19:25 | CT ---
CT CERVICAL SPINE NONCONTRAST: 01/11/20 HISTORY: 74-year-old male status post acute cervical trauma from fall. FINDINGS: There are no jumped or perched facets. There is no evidence of acute fracture. The vertebral body h eights are maintained. There is no prevertebral soft tissue swelling. IMPRESSION: No evidence of acute fracture or acute traumatic subluxation. jn [] POS: JIN
--- NOTE | 2020-01-11 19:33 | CT ---
CT MAXILLOFACIAL NONCONTRAST: 01/11/20 HISTORY: 74-year-old male status post acute facial trauma from fall. FINDINGS: Acute nasal bone fracture with medial displacement of left nasal bone. Overlying superficial soft tis irene swelling of the nose, including region of left medial canthus, left medial periorbital superficia l soft tissues. No post septal intraorbital hematoma, edema, or gas. No air fluid levels in paranasal sinuses. No oth er fracture. IMPRESSION: Acute, traumatic, moderately displaced left nasal bone fracture. POS: JIN
== END 2020-01-11 21:15 | disposition home or self-care (01) ==
LOC: ERS 17:46
DX: S02.2XXA Fracture of nasal bones, initial encounter for closed fracture (principal); S01.81XA Laceration without foreign body of other part of head, initial encounter; R11.2 Nausea with vomiting, unspecified; I10 Essential (primary) hypertension; D64.9 Anemia, unspecified; Z87.891 Personal history of nicotine dependence; Z79.899 Other long term (current) drug therapy; W01.10XA Fall on same level from slipping, tripping and stumbling with subsequent striking against unspecified object, initial encounter
CPT/HCPCS: 12013; 36415; 70450; 70486; 71045; 72125; 80053; 82550; 84484; 85025; 85610; 85730; 86850; 86900; 86901; 90471; 90715; 93005; 96365; J0690

== ENCOUNTER 2020-02-24 11:39 | Outpatient (CLI) | payer MEDICARE ==
--- NOTE | 2020-02-24 12:27 | RAD ---
Chest one view HISTORY: Chest pain. Injury. COMPARISON: 01/11/2020. FINDINGS: Cardiac silhouette and pulmonary vasculature are unremarkable. Mediastinum is midline. No confluent airspace consolidation or evidence of pneumothorax. Old healed fracture of the posterior aspect of right ribs 6. No acute fracture evident. IMPRESSION : No acute abnormalities are demonstrated.
--- NOTE | 2020-02-24 12:31 | RAD ---
Left shoulder 3 views HISTORY: Shoulder pain. FINDINGS: Acromioclavicular and glenohumeral alignment are maintained. Mild degenerative changes. A very thin 0.6 cm calcific density projects 2.1 cm inferior to the glenoid on the external rotation view and slightly more medial on the internal rotation view. Its distance from the glenoid argues against an acute or remote avulsion injury. It is likely associated with the pectoralis muscle or ext rinsic artifact. Downsloping of the acromion. Small amount of calcification associated with the distal rotator cuff zacarias ggests calcific tendinosis. IMPRESSION : No acute abnormalities are demonstrated.
== END 2020-02-24 11:40 | disposition home or self-care (01) ==
LOC: BICRAD 11:39
PROVIDERS: ATTEND Family Medicine
DX: M25.512 Pain in left shoulder (principal); G89.11 Acute pain due to trauma
CPT/HCPCS: 71045

== ENCOUNTER 2020-05-16 08:55 | Emergency (ER) | payer MEDICARE ==
[2020-05-16] MEDS ORDERED: Ibuprofen 200 MG TAB ONE (09:21)
[2020-05-16] MEDS ORDERED: Bupivacaine 0.5% 10 ML VIAL ONE (09:29)
== END 2020-05-16 10:45 | disposition home or self-care (01) ==
LOC: ERS 08:55
DX: S63.285A Dislocation of proximal interphalangeal joint of left ring finger, initial encounter (principal); D64.9 Anemia, unspecified; Z87.891 Personal history of nicotine dependence; Z79.899 Other long term (current) drug therapy; W06.XXXA Fall from bed, initial encounter; Y92.019 Unspecified place in single-family (private) house as the place of occurrence of the external cause
CPT/HCPCS: 64450; J3490

== ENCOUNTER 2021-03-19 21:05 | Inpatient (IN) | payer MEDICARE ==
[2021-03-19 22:08] LABS: Hemoglobin 13.7 g/dL (14.0-18.0); Mean Corpuscular HGB CONC 33.6 g/dL (32.0-36.0); Mean Corpuscular Hemoglobin 35.1 pg (27.0-31.0); Mean Platelet Volume 6.3 fL (7.4-10.4); Platelet Count 186 thou/uL (130-400); RBC Distribution Width 15.1 % (11.5-14.5); Red Blood Cell (RBC) Count 3.91 mill/uL (4.70-6.10); White Blood Cell (WBC) Count 6.6 thou/uL (4.8-10.8)
[2021-03-19 22:13] LABS: INR-International Normal Ratio 0.9; PTT 27.8 sec (22.9-36.1); Prothrombin Time 12.7 sec (12.0-14.7)
[2021-03-19] MEDS ORDERED: Ondansetron PF 4 MG/2 ML Vial ONE (22:16)
[2021-03-19 22:25] LABS: ALT (SGPT) 12 U/L (8-55); AST (SGOT) 22 U/L (5-34); Albumin 3.4 g/dL (3.4-4.8); Alkaline Phosphatase 140 U/L (40-110); Anion Gap 15 mmol/L (10-20); BUN (Urea Nitrogen) 8 mg/dL (8.4-25.7); Bilirubin, Total 0.5 mg/dL (0.2-1.2); Calc. Creatinine Clearance 0 mL/min (70-130); Calcium 8.9 mg/dL (7.8-10.44); Carbon Dioxide 22 mmol/L (23-31); Chloride 102 mmol/L (98-107); Globulin 3.4 g/dL (2.4-3.5); Glucose 111 mg/dL (83-110); Potassium 3.8 mmol/L (3.5-5.1); Protein, Total 6.8 g/dL (5.8-8.1); Sodium 135 mmol/L (136-145)
[2021-03-19 22:28] LABS: Band 9 % (5-11); Lymphocytes 5 % (21-51); MDiff Complete? YES; Monocytes 11 % (0-10); Neutrophil 74 % (42-75)
[2021-03-19] MEDS ORDERED: Morphine 4 MG/ML VIAL ONE (22:43)
[2021-03-19 22:45] LABS: Magnesium 1.9 mg/dL (1.6-2.6); Phosphorus 2.1 mg/dL (2.3-4.7)
[2021-03-19] MEDS ORDERED: Morphine 4 MG/ML VIAL SLOW IVP PRN (22:45)
[2021-03-19] MEDS ORDERED: Dextrose 50% Abboject 50 ML SYRINGE SLOW IVP PRN (22:45)
[2021-03-19] MEDS ORDERED: Dextrose 5% in Water 1,000 ML IV PRN (22:45)
[2021-03-19] MEDS ORDERED: hydrALAZINE 20 MG/ML VIAL SLOW IVP PRN (22:45)
[2021-03-19] MEDS ORDERED: Ondansetron PF 4 MG/2 ML Vial IVP PRN (22:45)
[2021-03-19] MEDS ORDERED: Acetaminophen/Codeine 30-300mg Tablet PO PRN (22:48)
[2021-03-19] MEDS ORDERED: Sodium Chloride 0.9% 1,000 ML IV SCH (23:30)
[2021-03-20] MEDS: Acetaminophen 325 MG TAB PO SCH ×5 (01:10→23:49)
[2021-03-20] MEDS: Cyclobenzaprine 10 MG TAB PO PRN (01:11)
[2021-03-20] MEDS: Acetaminophen/Codeine 30-300mg Tablet PO PRN (01:11)
[2021-03-20 02:08] VITALS: BMI 24.8
[2021-03-20 02:58] LABS: SARS-CoV-2 NAA Rapid Test Not Detected (NotDetected)
[2021-03-20 05:12] LABS: Band 9 % (5-11); Hemoglobin 11.4 g/dL (14.0-18.0); Lymphocytes 5 % (21-51); MDiff Complete? YES; Mean Corpuscular Hemoglobin 34.5 pg (27.0-31.0); Mean Platelet Volume 6.1 fL (7.4-10.4); Monocytes 18 % (0-10); Neutrophil 68 % (42-75); Platelet Count 167 thou/uL (130-400); Red Blood Cell (RBC) Count 3.31 mill/uL (4.70-6.10); White Blood Cell (WBC) Count 6.6 thou/uL (4.8-10.8)
[2021-03-20 05:57] LABS: Anion Gap 12 mmol/L (10-20); BUN (Urea Nitrogen) 7 mg/dL (8.4-25.7); Calc. Creatinine Clearance 92 mL/min (70-130); Calcium 7.9 mg/dL (7.8-10.44); Carbon Dioxide 24 mmol/L (23-31); Chloride 105 mmol/L (98-107); Glucose 101 mg/dL (83-110); Magnesium 1.7 mg/dL (1.6-2.6); Phosphorus 3.6 mg/dL (2.3-4.7); Potassium 3.7 mmol/L (3.5-5.1); Sodium 137 mmol/L (136-145)
[2021-03-20] MEDS: Ibuprofen 200 MG TAB PO SCH ×3 (06:21→21:58)
[2021-03-20] MEDS: Oxazepam 10 MG CAP PO SCH ×3 (06:21→21:58)
[2021-03-20] MEDS ORDERED: ceFAZolin 2 GM/Dextrose 50 ML 2 GM in Premix Bag 1 BAG IVPB SCH (07:15)
[2021-03-20] MEDS: Polyethylene Glycol 3350 17 GM Packet PO SCH (08:15)
[2021-03-20] MEDS: Folic Acid 1 MG TAB PO SCH ×3 (08:23→09:25)
[2021-03-20] MEDS: Multivitamin W/ Minerals 1 TAB PO SCH (08:23)
[2021-03-20] MEDS: Thiamine 100 MG TAB PO SCH (08:23)
[2021-03-20] MEDS: Senokot S 8.6-50 MG TAB PO SCH ×2 (08:23→21:59)
[2021-03-20] MEDS: Famotidine 20 MG TAB PO SCH ×2 (08:23→21:59)
[2021-03-20] MEDS: Escitalopram Oxalate 10 mg Tablet PO SCH (08:34)
[2021-03-20] MEDS: levETIRAcetam 500 MG TAB PO SCH ×2 (08:34→21:58)
[2021-03-20] MEDS ORDERED: ceFAZolin 2 GM/Dextrose 50 ML IVPB ONE (12:54)
[2021-03-20] MEDS ORDERED: Fentanyl 100 MCG/2 ML VIAL ONE ×2 (13:01→14:57)
[2021-03-20] MEDS ORDERED: Magnesium Sulfate 3 GM in Sodium Chloride 0.9% 100 ML IV SCH (13:15)
[2021-03-20] MEDS ORDERED: PROPOFOL 200 MG/20 ML VIAL ONE (13:27)
[2021-03-20] MEDS ORDERED: ePHEDrine 50 MG/ML VIAL ONE (13:27)
[2021-03-20] MEDS ORDERED: Ondansetron PF 4 MG/2 ML Vial ONE (13:27)
[2021-03-20] MEDS ORDERED: Rocuronium Bromide 10 MG/ML (10ML VIAL) ONE (13:27)
[2021-03-20] MEDS ORDERED: Glycopyrrolate 0.2 MG/ML 5 ML SYRINGE ONE (13:27)
[2021-03-20] MEDS ORDERED: Bupivacaine HCl 0.5%/Epinephrine 1:200,000/PF 30 ml Vial ONE (13:27)
[2021-03-20] MEDS ORDERED: PHENYLEPHRINE-NS 100 MCG/ML 10 ML SYRINGE ONE (13:27)
[2021-03-20] MEDS ORDERED: Lidocaine 1% PF 5 ML VIAL ONE (13:27)
[2021-03-20] MEDS ORDERED: Promethazine HCl 25 MG/ML VIAL IM PRN (14:36)
[2021-03-20] MEDS ORDERED: Promethazine HCl 25 MG/ML VIAL IVPB PRN (14:36)
[2021-03-20] MEDS ORDERED: Ondansetron HCl/PF 4 MG/2 ML Vial IVP PRN (14:36)
[2021-03-20] MEDS ORDERED: Potassium Chloride 20 MEQ TAB PO SCH (17:30)
[2021-03-20] MEDS ORDERED: Tamsulosin HCl 0.4 MG CAP PO SCH (21:00)
[2021-03-20] MEDS: ceFAZolin 2 GM/Dextrose 50 ML 2 GM in Premix Bag 1 BAG IVPB SCH (22:00)
[2021-03-21] MEDS: Ibuprofen 200 MG TAB PO SCH (05:25)
[2021-03-21] MEDS: Oxazepam 10 MG CAP PO SCH ×3 (05:25→20:56)
[2021-03-21] MEDS: Acetaminophen 325 MG TAB PO SCH ×5 (05:25→23:44)
[2021-03-21] MEDS: ceFAZolin 2 GM/Dextrose 50 ML 2 GM in Premix Bag 1 BAG IVPB SCH ×2 (05:26→14:31)
[2021-03-21 06:38] LABS: #Lymphocytes 0.3 thou/uL (1.20-3.40); #Monocytes 0.9 thou/uL (0.11-0.59); #Neutrophils 5.6 thou/uL (1.40-6.50); %Eosinophils 0.2 % (0.0-10.0); %Lymphocytes 4.9 % (21.0-51.0); %Monocytes 13.6 % (0.0-10.0); %Neutrophils 81.3 % (42.0-75.0); Hemoglobin 10.5 g/dL (14.0-18.0); Mean Corpuscular HGB CONC 32.6 g/dL (32.0-36.0); Mean Corpuscular Hemoglobin 34.5 pg (27.0-31.0); Mean Platelet Volume 6.3 fL (7.4-10.4); Platelet Count 173 thou/uL (130-400); RBC Distribution Width 14.8 % (11.5-14.5); Red Blood Cell (RBC) Count 3.03 mill/uL (4.70-6.10); White Blood Cell (WBC) Count 6.9 thou/uL (4.8-10.8)
[2021-03-21 06:55] LABS: Anion Gap 12 mmol/L (10-20); BUN (Urea Nitrogen) 11 mg/dL (8.4-25.7); Calc. Creatinine Clearance 78 mL/min (70-130); Calcium 8.1 mg/dL (7.8-10.44); Carbon Dioxide 23 mmol/L (23-31); Chloride 103 mmol/L (98-107); Glucose 128 mg/dL (83-110); Magnesium 2.1 mg/dL (1.6-2.6); Phosphorus 2.9 mg/dL (2.3-4.7); Potassium 4.6 mmol/L (3.5-5.1); Sodium 133 mmol/L (136-145)
[2021-03-21] MEDS: Escitalopram Oxalate 10 mg Tablet PO SCH (10:10)
[2021-03-21] MEDS: Famotidine 20 MG TAB PO SCH ×2 (10:10→20:55)
[2021-03-21] MEDS: Aspirin 81 mg Enteric Coated Tablet PO SCH ×2 (10:10→20:55)
[2021-03-21] MEDS: Folic Acid 1 MG TAB PO SCH (10:10)
[2021-03-21] MEDS: Thiamine 100 MG TAB PO SCH (10:10)
[2021-03-21] MEDS: Polyethylene Glycol 3350 17 GM Packet PO SCH (10:11)
[2021-03-21] MEDS: Multivitamin W/ Minerals 1 TAB PO SCH (10:11)
[2021-03-21] MEDS: levETIRAcetam 500 MG TAB PO SCH (10:11)
[2021-03-21] MEDS: Senokot S 8.6-50 MG TAB PO SCH ×2 (10:11→20:55)
[2021-03-21] MEDS: Acetaminophen/Codeine 30-300mg Tablet PO PRN ×2 (10:17→18:28)
[2021-03-21] MEDS ORDERED: Ibuprofen 200 MG TAB PO PRN (12:48)
[2021-03-21] MEDS: Cyclobenzaprine 10 MG TAB PO PRN (14:35)
[2021-03-21] MEDS: lamoTRIgine 25 MG TAB PO SCH (21:00)
[2021-03-22] MEDS: Oxazepam 10 MG CAP PO SCH ×3 (05:15→21:40)
[2021-03-22] MEDS: Acetaminophen 325 MG TAB PO SCH ×3 (05:15→18:39)
[2021-03-22 07:16] LABS: Mean Corpuscular HGB CONC 33.7 g/dL (32.0-36.0); Mean Corpuscular Hemoglobin 35.6 pg (27.0-31.0); Mean Platelet Volume 6.4 fL (7.4-10.4); Platelet Count 163 thou/uL (130-400); RBC Distribution Width 14.9 % (11.5-14.5); Red Blood Cell (RBC) Count 2.52 mill/uL (4.70-6.10); White Blood Cell (WBC) Count 6.2 thou/uL (4.8-10.8)
[2021-03-22 07:34] LABS: Anion Gap 10 mmol/L (10-20); BUN (Urea Nitrogen) 14 mg/dL (8.4-25.7); Calc. Creatinine Clearance 80 mL/min (70-130); Calcium 8.3 mg/dL (7.8-10.44); Carbon Dioxide 25 mmol/L (23-31); Chloride 106 mmol/L (98-107); Glucose 99 mg/dL (83-110); Magnesium 2.1 mg/dL (1.6-2.6); Phosphorus 3.5 mg/dL (2.3-4.7); Potassium 3.9 mmol/L (3.5-5.1); Sodium 137 mmol/L (136-145)
[2021-03-22] MEDS: Polyethylene Glycol 3350 17 GM Packet PO SCH (08:29)
[2021-03-22] MEDS: Acetaminophen/Codeine 30-300mg Tablet PO PRN ×2 (08:33→21:45)
[2021-03-22] MEDS: Thiamine 100 MG TAB PO SCH (08:34)
[2021-03-22] MEDS: Multivitamin W/ Minerals 1 TAB PO SCH (08:34)
[2021-03-22] MEDS: Famotidine 20 MG TAB PO SCH ×2 (08:35→21:14)
[2021-03-22] MEDS: Escitalopram Oxalate 10 mg Tablet PO SCH (08:35)
[2021-03-22] MEDS: Folic Acid 1 MG TAB PO SCH (08:36)
[2021-03-22] MEDS: lamoTRIgine 25 MG TAB PO SCH ×2 (08:36→21:40)
[2021-03-22] MEDS: Aspirin 81 mg Enteric Coated Tablet PO SCH ×2 (08:36→21:14)
[2021-03-22] MEDS: Senokot S 8.6-50 MG TAB PO SCH ×2 (08:36→21:14)
[2021-03-22] MEDS: Ferrous Sulfate 325 MG TAB PO SCH ×2 (08:36→18:39)
[2021-03-22] MEDS: Ascorbic Acid 500 mg Chewable Tablet PO SCH ×2 (08:37→21:14)
[2021-03-22 08:48] LABS: Band 8 % (5-11); Eosinophils 3 % (0-10); Lymphocytes 16 % (21-51); MDiff Complete? YES; Monocytes 17 % (0-10); Neutrophil 55 % (42-75); Platelet Morphology Comment Appears Adequate; Polychromasia SLIGHT = 2-3 cells (100X) (0-2/hpf)
[2021-03-23] MEDS: Acetaminophen 325 MG TAB PO SCH ×4 (00:30→18:07)
[2021-03-23] MEDS: Oxazepam 10 MG CAP PO SCH ×3 (05:25→21:46)
[2021-03-23] MEDS ORDERED: Labetalol HCl 100 MG/20 ML VIAL ONE (07:57)
[2021-03-23] MEDS ORDERED: Labetalol HCl 100 MG/20 ML VIAL SLOW IVP SCH (07:58)
[2021-03-23] MEDS: Ascorbic Acid 500 mg Chewable Tablet PO SCH ×2 (08:09→21:46)
[2021-03-23] MEDS: Thiamine 100 MG TAB PO SCH (08:09)
[2021-03-23] MEDS: lamoTRIgine 25 MG TAB PO SCH ×2 (08:09→21:47)
[2021-03-23] MEDS: Escitalopram Oxalate 10 mg Tablet PO SCH (08:09)
[2021-03-23] MEDS: Senokot S 8.6-50 MG TAB PO SCH ×2 (08:09→21:46)
[2021-03-23] MEDS: Aspirin 81 mg Enteric Coated Tablet PO SCH ×2 (08:09→21:45)
[2021-03-23] MEDS: Folic Acid 1 MG TAB PO SCH (08:09)
[2021-03-23] MEDS: Multivitamin W/ Minerals 1 TAB PO SCH (08:09)
[2021-03-23] MEDS: Famotidine 20 MG TAB PO SCH ×2 (08:09→21:45)
[2021-03-23] MEDS: Polyethylene Glycol 3350 17 GM Packet PO SCH (08:10)
[2021-03-23] MEDS: Ferrous Sulfate 325 MG TAB PO SCH ×2 (08:10→16:35)
[2021-03-23] MEDS ORDERED: Acetaminophen/Codeine 30-300mg Tablet PO SCH (10:00)
[2021-03-23] MEDS: Acetaminophen/Codeine 30-300mg Tablet PO PRN (10:28)
[2021-03-23] MEDS: Acetaminophen/Codeine 30-300mg Tablet PO SCH ×2 (14:46→21:47)
[2021-03-23] MEDS: Ibuprofen 200 MG TAB PO SCH (16:35)
[2021-03-23] MEDS: Cyclobenzaprine 10 MG TAB PO PRN (21:47)
[2021-03-23] MEDS: Lisinopril 10 MG TAB PO SCH (21:47)
[2021-03-24] MEDS: Acetaminophen 325 MG TAB PO SCH ×4 (01:24→17:11)
[2021-03-24] MEDS: Ibuprofen 200 MG TAB PO SCH ×3 (02:14→17:11)
[2021-03-24] MEDS: Acetaminophen/Codeine 30-300mg Tablet PO SCH ×4 (02:15→20:01)
[2021-03-24] MEDS: Oxazepam 10 MG CAP PO SCH ×3 (06:04→21:03)
[2021-03-24] MEDS: Folic Acid 1 MG TAB PO SCH (09:06)
[2021-03-24] MEDS: Multivitamin W/ Minerals 1 TAB PO SCH (09:06)
[2021-03-24] MEDS: Polyethylene Glycol 3350 17 GM Packet PO SCH (09:06)
[2021-03-24] MEDS: Famotidine 20 MG TAB PO SCH ×2 (09:07→20:01)
[2021-03-24] MEDS: Ascorbic Acid 500 mg Chewable Tablet PO SCH ×2 (09:11→20:00)
[2021-03-24] MEDS: Ferrous Sulfate 325 MG TAB PO SCH ×2 (09:11→17:11)
[2021-03-24] MEDS: Thiamine 100 MG TAB PO SCH (09:11)
[2021-03-24] MEDS: Aspirin 81 mg Enteric Coated Tablet PO SCH ×2 (09:11→20:01)
[2021-03-24] MEDS: Escitalopram Oxalate 10 mg Tablet PO SCH (09:11)
[2021-03-24] MEDS: Senokot S 8.6-50 MG TAB PO SCH ×2 (09:11→20:01)
[2021-03-24] MEDS: lamoTRIgine 25 MG TAB PO SCH ×2 (09:20→20:01)
[2021-03-24] MEDS ORDERED: Oxazepam 10 MG CAP PO SCH (15:00)
[2021-03-24] MEDS ORDERED: Magnesium Citrate 300 ML BOT PO SCH (17:00)
[2021-03-24] MEDS: Lisinopril 10 MG TAB PO SCH (20:01)
[2021-03-25] MEDS: Ibuprofen 200 MG TAB PO SCH ×3 (00:04→16:01)
[2021-03-25] MEDS: Acetaminophen 325 MG TAB PO SCH ×5 (00:04→17:03)
[2021-03-25] MEDS: Acetaminophen/Codeine 30-300mg Tablet PO SCH ×4 (02:53→21:05)
[2021-03-25] MEDS: Oxazepam 10 MG CAP PO SCH ×3 (05:15→21:07)
[2021-03-25] MEDS: Folic Acid 1 MG TAB PO SCH (08:37)
[2021-03-25] MEDS: Gabapentin 100 MG CAP PO SCH ×2 (08:38→21:06)
[2021-03-25] MEDS: lamoTRIgine 25 MG TAB PO SCH ×2 (08:38→21:07)
[2021-03-25] MEDS: Ferrous Sulfate 325 MG TAB PO SCH ×2 (08:38→16:01)
[2021-03-25] MEDS: Aspirin 81 mg Enteric Coated Tablet PO SCH ×2 (08:38→21:06)
[2021-03-25] MEDS: Thiamine 100 MG TAB PO SCH (08:39)
[2021-03-25] MEDS: Senokot S 8.6-50 MG TAB PO SCH ×2 (08:39→21:07)
[2021-03-25] MEDS: Ascorbic Acid 500 mg Chewable Tablet PO SCH ×2 (08:40→21:06)
[2021-03-25] MEDS: Famotidine 20 MG TAB PO SCH ×2 (08:40→21:06)
[2021-03-25] MEDS: Escitalopram Oxalate 10 mg Tablet PO SCH (08:40)
[2021-03-25] MEDS: Multivitamin W/ Minerals 1 TAB PO SCH (08:40)
[2021-03-25] MEDS: Polyethylene Glycol 3350 17 GM Packet PO SCH (08:46)
[2021-03-25] MEDS: Cyclobenzaprine 10 MG TAB PO PRN (12:04)
[2021-03-25] MEDS: Lisinopril 10 MG TAB PO SCH (21:07)
[2021-03-26] MEDS: Ibuprofen 200 MG TAB PO SCH ×3 (00:28→17:12)
[2021-03-26] MEDS: Acetaminophen 325 MG TAB PO SCH ×4 (00:28→17:13)
[2021-03-26] MEDS: Acetaminophen/Codeine 30-300mg Tablet PO SCH ×3 (03:33→14:29)
[2021-03-26] MEDS: Oxazepam 10 MG CAP PO SCH ×2 (05:54→14:29)
[2021-03-26] MEDS: Aspirin 81 mg Enteric Coated Tablet PO SCH (08:43)
[2021-03-26] MEDS: Polyethylene Glycol 3350 17 GM Packet PO SCH (08:43)
[2021-03-26] MEDS: Folic Acid 1 MG TAB PO SCH (08:43)
[2021-03-26] MEDS: Gabapentin 100 MG CAP PO SCH (08:43)
[2021-03-26] MEDS: Thiamine 100 MG TAB PO SCH (08:44)
[2021-03-26] MEDS: Ascorbic Acid 500 mg Chewable Tablet PO SCH (08:44)
[2021-03-26] MEDS: Escitalopram Oxalate 10 mg Tablet PO SCH (08:44)
[2021-03-26] MEDS: Multivitamin W/ Minerals 1 TAB PO SCH (08:44)
[2021-03-26] MEDS: Ferrous Sulfate 325 MG TAB PO SCH ×2 (08:44→17:12)
[2021-03-26] MEDS: Famotidine 20 MG TAB PO SCH (08:44)
[2021-03-26] MEDS: Senokot S 8.6-50 MG TAB PO SCH (08:44)
[2021-03-26] MEDS: lamoTRIgine 25 MG TAB PO SCH (08:44)
[2021-03-26] MEDS: Acetaminophen/Codeine 30-300mg Tablet PO PRN (08:44)
[2021-03-26 12:33] LABS: SARS-CoV-2 PCR by NAA Not Detected (NotDetected)
[2021-03-26 19:29] VITALS: BP 115/57; TEMP 98.2
== END 2021-03-26 20:26 | DRG 481 ==
LOC: ERS 21:05 → SURG B 22:48
PROVIDERS: ADMIT Surgery; ATTEND Surgery
PROC: 0QS604Z Reposition Right Upper Femur with Internal Fixation Device, Open Approach (ICD-10-PCS; principal; 2021-03-20)
DX: S72.141A Displaced intertrochanteric fracture of right femur, initial encounter for closed fracture (principal); E87.1 Hypo-osmolality and hyponatremia; Z20.822 Contact with and (suspected) exposure to COVID-19; W18.30XA Fall on same level, unspecified, initial encounter; I10 Essential (primary) hypertension; F32.A Depression, unspecified; N40.0 Benign prostatic hyperplasia without lower urinary tract symptoms; G40.909 Epilepsy, unspecified, not intractable, without status epilepticus; F10.120 Alcohol abuse with intoxication, uncomplicated; Y90.6 Blood alcohol level of 120-199 mg/100 ml; D53.9 Nutritional anemia, unspecified; Z85.46 Personal history of malignant neoplasm of prostate; Z90.49 Acquired absence of other specified parts of digestive tract; Z87.891 Personal history of nicotine dependence; Z79.899 Other long term (current) drug therapy
CPT/HCPCS: 36415; 71045; 76000; 80048; 80053; 80307; 83735; 84100; 85025; 85610; 85730; 93005; 96374; 96375; C1713; G0390; J0690; J2270; J2405; J2704; J3010; J3475; J3490; J7050; U0002; U0003; U0005

== ENCOUNTER 2021-03-29 23:20 | Inpatient (IN) | payer MEDICARE ==
[2021-03-29 23:51] LABS: #Eosinphils 0.1 thou/uL (0.0-0.7); #Lymphocytes 0.7 thou/uL (1.20-3.40); #Monocytes 1.1 thou/uL (0.11-0.59); #Neutrophils 6.3 thou/uL (1.40-6.50); %Eosinophils 1.4 % (0.0-10.0); %Monocytes 12.9 % (0.0-10.0); %Neutrophils 76.7 % (42.0-75.0); Hemoglobin 10.9 g/dL (14.0-18.0); Mean Corpuscular HGB CONC 33.5 g/dL (32.0-36.0); Mean Corpuscular Hemoglobin 35.5 pg (27.0-31.0); Mean Platelet Volume 5.6 fL (7.4-10.4); Platelet Count 455 thou/uL (130-400); RBC Distribution Width 14.5 % (11.5-14.5); Red Blood Cell (RBC) Count 3.09 mill/uL (4.70-6.10); White Blood Cell (WBC) Count 8.3 thou/uL (4.8-10.8)
[2021-03-30 00:08] LABS: ALT (SGPT) 10 U/L (8-55); AST (SGOT) 16 U/L (5-34); Albumin 3.4 g/dL (3.4-4.8); Alkaline Phosphatase 121 U/L (40-110); Anion Gap 16 mmol/L (10-20); BUN (Urea Nitrogen) 14 mg/dL (8.4-25.7); Calc. Creatinine Clearance 0 mL/min (70-130); Calcium 8.6 mg/dL (7.8-10.44); Carbon Dioxide 20 mmol/L (23-31); Chloride 100 mmol/L (98-107); Globulin 2.9 g/dL (2.4-3.5); Glucose 109 mg/dL (83-110); Potassium 4.1 mmol/L (3.5-5.1); Protein, Total 6.3 g/dL (5.8-8.1); Sodium 132 mmol/L (136-145)
[2021-03-30 00:48] LABS: Bilirubin Negative (Negative); Blood, Urine Trace (Negative); Clarity Extra Turbid (Clear); Glucose, Urine (Dipstick) Normal (Negative); Ketone, Urine 10 mg/dL (Negative); Leukocyte 500 Leu/uL (Negative); Nitrite 1+ (Negative); Protein, Urine (Dipstick) 30 mg/dL (Neg-Trace); RBC/HPF 0-3 HPF (0-3); Specific Gravity, Urine 1.018 (1.002-1.036); Squamous Epithelial None Seen HPF (0-3); Urobilinogen 12 mg/dL (Less than 2); WBC/HPF Greater than 50 HPF (0-3)
[2021-03-30 00:53] LABS: Bacteria/HPF 1+ HPF (None Seen)
[2021-03-30] MEDS ORDERED: cefTRIAXone\\ROCEPHIN 1 GM VIAL ONE (01:11)
[2021-03-30] MEDS ORDERED: hydrALAZINE 20 MG/ML VIAL ONE (01:11)
[2021-03-30] MEDS ORDERED: Ondansetron PF 4 MG/2 ML Vial IVP PRN (02:06)
[2021-03-30] MEDS ORDERED: Ondansetron ODT 4 MG TAB PO PRN (02:06)
[2021-03-30] MEDS ORDERED: hydrALAZINE 20 MG/ML VIAL SLOW IVP PRN (02:11)
[2021-03-30] MEDS ORDERED: traMADol HCl 50 MG TAB PO PRN (02:21)
[2021-03-30] MEDS ORDERED: Cyclobenzaprine 10 MG TAB PO PRN (02:21)
[2021-03-30] MEDS ORDERED: Sodium Chloride 0.9% 1,000 ML IV SCH (03:00)
[2021-03-30 03:28] VITALS: BMI 24.7
[2021-03-30] MEDS ORDERED: Acetaminophen 325 MG TAB PO SCH (06:00)
[2021-03-30 06:29] LABS: #Eosinphils 0.1 thou/uL (0.0-0.7); #Lymphocytes 0.9 thou/uL (1.20-3.40); #Monocytes 1.1 thou/uL (0.11-0.59); %Basophils 0.5 % (0.0-1.0); %Eosinophils 1.3 % (0.0-10.0); %Lymphocytes 10.6 % (21.0-51.0); %Monocytes 13.1 % (0.0-10.0); %Neutrophils 74.6 % (42.0-75.0); Hemoglobin 10.2 g/dL (14.0-18.0); Mean Corpuscular HGB CONC 32.7 g/dL (32.0-36.0); Mean Corpuscular Hemoglobin 34.8 pg (27.0-31.0); Mean Platelet Volume 5.9 fL (7.4-10.4); Platelet Count 449 thou/uL (130-400); RBC Distribution Width 14.5 % (11.5-14.5); Red Blood Cell (RBC) Count 2.92 mill/uL (4.70-6.10); White Blood Cell (WBC) Count 8.1 thou/uL (4.8-10.8)
[2021-03-30 06:48] LABS: Anion Gap 13 mmol/L (10-20); BUN (Urea Nitrogen) 12 mg/dL (8.4-25.7); Calc. Creatinine Clearance 90 mL/min (70-130); Calcium 8.7 mg/dL (7.8-10.44); Carbon Dioxide 21 mmol/L (23-31); Chloride 102 mmol/L (98-107); Glucose 92 mg/dL (83-110); Potassium 3.7 mmol/L (3.5-5.1); Sodium 132 mmol/L (136-145)
[2021-03-30] MEDS ORDERED: FLU VACC QS2021-22(65YR UP)/PF 240 MCG/0.7 ML SYRINGE IM ONE (09:00)
[2021-03-30] MEDS: Escitalopram Oxalate 10 mg Tablet PO SCH (09:26)
[2021-03-30] MEDS: Folic Acid 1 MG TAB PO SCH (09:26)
[2021-03-30] MEDS: Gabapentin 100 MG CAP PO SCH ×2 (09:26→20:33)
[2021-03-30] MEDS: Lisinopril 10 MG TAB PO SCH (09:26)
[2021-03-30] MEDS: lamoTRIgine 25 MG TAB PO SCH ×2 (09:27→20:34)
[2021-03-30] MEDS: Acetaminophen 325 MG TAB PO PRN (20:34)
[2021-03-30] MEDS: Enoxaparin Sodium 40 MG/0.4 ML SYRINGE SC SCH (20:52)
[2021-03-30] MEDS ORDERED: cefTRIAXone\\ROCEPHIN 1 GM in Sodium Chloride 0.9% 100 ML IVPB SCH (22:00)
[2021-03-30] MEDS ORDERED: Ziprasidone 20 MG VIAL IM SCH (22:45)
[2021-03-31] MEDS: Gabapentin 100 MG CAP PO SCH ×2 (09:18→19:11)
[2021-03-31] MEDS: Folic Acid 1 MG TAB PO SCH (09:19)
[2021-03-31] MEDS: Lisinopril 10 MG TAB PO SCH (09:19)
[2021-03-31] MEDS: Escitalopram Oxalate 10 mg Tablet PO SCH (09:19)
[2021-03-31] MEDS: Cyanocobalamin (Vitamin B-12) 1,000 MCG TAB PO SCH (09:19)
[2021-03-31] MEDS: lamoTRIgine 25 MG TAB PO SCH ×2 (09:20→19:11)
[2021-03-31] MEDS ORDERED: Lisinopril 10 MG TAB PO SCH ×2 (11:03→11:15)
[2021-03-31] MEDS ORDERED: Thiamine HCl 200 MG/2 ML VIAL SLOW IVP SCH (17:30)
[2021-03-31] MEDS ORDERED: Cephalexin 250 MG CAP PO SCH (18:00)
[2021-03-31] MEDS: Lactated Ringer's 1,000 ML IV SCH (18:08)
[2021-03-31] MEDS ORDERED: Haloperidol Lactate 5 MG/ML VIAL IM PRN (19:53)
[2021-03-31] MEDS ORDERED: Haloperidol Lactate 5 MG/ML VIAL IM SCH ×2 (20:00→23:59)
[2021-03-31] MEDS: Enoxaparin Sodium 40 MG/0.4 ML SYRINGE SC SCH (20:56)
[2021-03-31] MEDS: cefTRIAXone\\ROCEPHIN 1 GM in Sodium Chloride 0.9% 100 ML IVPB SCH (20:56)
[2021-03-31] MEDS: Ketorolac Tromethamine 30 MG/ML VIAL IVP PRN (22:14)
[2021-04-01] MEDS: Lactated Ringer's 1,000 ML IV SCH ×2 (05:13→15:03)
[2021-04-01] MEDS: Ketorolac Tromethamine 30 MG/ML VIAL IVP PRN (05:13)
[2021-04-01 06:09] LABS: #Basophils 0.1 thou/uL (0.0-0.2); #Eosinphils 0.1 thou/uL (0.0-0.7); #Monocytes 1.5 thou/uL (0.11-0.59); #Neutrophils 9.5 thou/uL (1.40-6.50); %Basophils 0.7 % (0.0-1.0); %Eosinophils 0.6 % (0.0-10.0); %Lymphocytes 7.9 % (21.0-51.0); %Monocytes 12.3 % (0.0-10.0); %Neutrophils 78.5 % (42.0-75.0); Hemoglobin 10.8 g/dL (14.0-18.0); Mean Corpuscular HGB CONC 32.1 g/dL (32.0-36.0); Mean Corpuscular Hemoglobin 34.1 pg (27.0-31.0); Mean Platelet Volume 5.9 fL (7.4-10.4); Platelet Count 452 thou/uL (130-400); RBC Distribution Width 14.6 % (11.5-14.5); Red Blood Cell (RBC) Count 3.17 mill/uL (4.70-6.10); White Blood Cell (WBC) Count 12.1 thou/uL (4.8-10.8)
[2021-04-01 06:26] LABS: Anion Gap 12 mmol/L (10-20); BUN (Urea Nitrogen) 19 mg/dL (8.4-25.7); Calc. Creatinine Clearance 66 mL/min (70-130); Calcium 9.3 mg/dL (7.8-10.44); Carbon Dioxide 26 mmol/L (23-31); Chloride 105 mmol/L (98-107); Glucose 61 mg/dL (83-110); Potassium 3.6 mmol/L (3.5-5.1); Sodium 139 mmol/L (136-145)
[2021-04-01] MEDS ORDERED: levETIRAcetam in NS 1,500 MG in Premix Bag 1 BAG IVPB SCH (12:00)
[2021-04-01] MEDS: Folic Acid 1 MG TAB PO SCH (12:09)
[2021-04-01] MEDS: Cyanocobalamin (Vitamin B-12) 1,000 MCG TAB PO SCH (12:09)
[2021-04-01] MEDS: Escitalopram Oxalate 10 mg Tablet PO SCH (12:09)
[2021-04-01] MEDS: lamoTRIgine 25 MG TAB PO SCH ×2 (12:10→20:32)
[2021-04-01] MEDS: Gabapentin 100 MG CAP PO SCH ×2 (12:10→20:31)
[2021-04-01] MEDS: Lisinopril 20 MG TAB PO SCH (12:10)
[2021-04-01] MEDS: Enoxaparin Sodium 40 MG/0.4 ML SYRINGE SC SCH (20:29)
[2021-04-01] MEDS: cefTRIAXone\\ROCEPHIN 1 GM in Sodium Chloride 0.9% 100 ML IVPB SCH ×2 (20:52→20:53)
[2021-04-02 06:33] LABS: #Eosinphils 0.2 thou/uL (0.0-0.7); #Lymphocytes 0.9 thou/uL (1.20-3.40); #Monocytes 1.2 thou/uL (0.11-0.59); #Neutrophils 12.9 thou/uL (1.40-6.50); %Basophils 0.3 % (0.0-1.0); %Eosinophils 1.6 % (0.0-10.0); %Lymphocytes 5.6 % (21.0-51.0); %Monocytes 7.6 % (0.0-10.0); %Neutrophils 84.9 % (42.0-75.0); Hemoglobin 11.1 g/dL (14.0-18.0); Mean Corpuscular HGB CONC 31.9 g/dL (32.0-36.0); Mean Corpuscular Hemoglobin 35.2 pg (27.0-31.0); Mean Platelet Volume 6.6 fL (7.4-10.4); Platelet Count 444 thou/uL (130-400); RBC Distribution Width 14.7 % (11.5-14.5); Red Blood Cell (RBC) Count 3.15 mill/uL (4.70-6.10); White Blood Cell (WBC) Count 15.2 thou/uL (4.8-10.8)
[2021-04-02 06:53] LABS: Anion Gap 18 mmol/L (10-20); BUN (Urea Nitrogen) 18 mg/dL (8.4-25.7); Calc. Creatinine Clearance 72 mL/min (70-130); Carbon Dioxide 14 mmol/L (23-31); Chloride 109 mmol/L (98-107); Glucose 74 mg/dL (83-110); Potassium 4.1 mmol/L (3.5-5.1); Sodium 137 mmol/L (136-145)
[2021-04-02] MEDS: Lactated Ringer's 1,000 ML IV SCH ×2 (07:51→11:45)
[2021-04-02] MEDS: Escitalopram Oxalate 10 mg Tablet PO SCH ×2 (08:28→17:05)
[2021-04-02] MEDS: Cyanocobalamin (Vitamin B-12) 1,000 MCG TAB PO SCH ×2 (08:28→17:05)
[2021-04-02] MEDS: Gabapentin 100 MG CAP PO SCH ×2 (08:28→20:33)
[2021-04-02] MEDS: Folic Acid 1 MG TAB PO SCH ×2 (08:28→17:05)
[2021-04-02] MEDS: lamoTRIgine 25 MG TAB PO SCH ×2 (08:29→20:34)
[2021-04-02] MEDS: Lisinopril 20 MG TAB PO SCH ×2 (08:29→17:05)
[2021-04-02] MEDS: Enoxaparin Sodium 40 MG/0.4 ML SYRINGE SC SCH (20:33)
[2021-04-03 06:24] LABS: Hemoglobin 13.1 g/dL (14.0-18.0); Mean Corpuscular HGB CONC 32.4 g/dL (32.0-36.0); Mean Corpuscular Hemoglobin 34.2 pg (27.0-31.0); Mean Platelet Volume 6.3 fL (7.4-10.4); Platelet Count 548 thou/uL (130-400); RBC Distribution Width 14.6 % (11.5-14.5); Red Blood Cell (RBC) Count 3.84 mill/uL (4.70-6.10); White Blood Cell (WBC) Count 17.1 thou/uL (4.8-10.8)
[2021-04-03 06:41] LABS: Anion Gap 16 mmol/L (10-20); BUN (Urea Nitrogen) 17 mg/dL (8.4-25.7); Calc. Creatinine Clearance 66 mL/min (70-130); Carbon Dioxide 18 mmol/L (23-31); Chloride 106 mmol/L (98-107); Glucose 126 mg/dL (83-110); Potassium 4.1 mmol/L (3.5-5.1); Sodium 136 mmol/L (136-145)
[2021-04-03 07:24] LABS: #Lymphocytes 0.3 thou/uL (1.20-3.40); #Monocytes 1.4 thou/uL (0.11-0.59); #Neutrophils 15.4 thou/uL (1.40-6.50); %Basophils 0.1 % (0.0-1.0); %Eosinophils 0.2 % (0.0-10.0); %Lymphocytes 1.6 % (21.0-51.0); %Monocytes 8.2 % (0.0-10.0); Band 21 % (5-11); Lymphocytes 1 % (21-51); MDiff Complete? YES; Monocytes 12 % (0-10); Neutrophil 66 % (42-75); Platelet Morphology Comment Appears Increased; Polychromasia SLIGHT = 2-3 cells (100X) (0-2/hpf)
[2021-04-03] MEDS ORDERED: Lactated Ringer's 500 ML IV SCH (07:54)
[2021-04-03 07:59] LABS: SARS-CoV-2 NAA Rapid Test Not Detected (NotDetected)
[2021-04-03] MEDS ORDERED: Lactated Ringer's 1,000 ML IV SCH (08:01)
[2021-04-03] MEDS: Pantoprazole 40 MG VIAL IVP SCH ×2 (08:42→19:59)
[2021-04-03] MEDS: Folic Acid 1 MG TAB PO SCH (08:50)
[2021-04-03] MEDS: Escitalopram Oxalate 10 mg Tablet PO SCH (08:50)
[2021-04-03] MEDS: Cyanocobalamin (Vitamin B-12) 1,000 MCG TAB PO SCH (08:50)
[2021-04-03] MEDS: Gabapentin 100 MG CAP PO SCH ×2 (08:50→19:58)
[2021-04-03] MEDS: Lisinopril 20 MG TAB PO SCH (08:50)
[2021-04-03] MEDS ORDERED: levETIRAcetam in NS 500 MG in Premix Bag 1 BAG IVPB SCH (09:00)
[2021-04-03 09:10] LABS: INR-International Normal Ratio 1.2; PTT 34.2 sec (22.9-36.1); Prothrombin Time 15.3 sec (12.0-14.7)
[2021-04-03] MEDS ORDERED: Lidocaine 1% PF 5 ML VIAL ONE (11:30)
[2021-04-03] MEDS ORDERED: PROPOFOL 200 MG/20 ML VIAL ONE (11:30)
[2021-04-03] MEDS ORDERED: lamoTRIgine 25 MG TAB PO SCH (21:00)
[2021-04-04 06:37] LABS: Anion Gap 13 mmol/L (10-20); BUN (Urea Nitrogen) 27 mg/dL (8.4-25.7); Calc. Creatinine Clearance 80 mL/min (70-130); Calcium 9.6 mg/dL (7.8-10.44); Carbon Dioxide 20 mmol/L (23-31); Chloride 112 mmol/L (98-107); Glucose 95 mg/dL (83-110); Potassium 3.6 mmol/L (3.5-5.1); Sodium 141 mmol/L (136-145)
[2021-04-04 07:33] LABS: Hemoglobin 9.7 g/dL (14.0-18.0); Mean Corpuscular HGB CONC 32.6 g/dL (32.0-36.0); Mean Corpuscular Hemoglobin 34.6 pg (27.0-31.0); Mean Platelet Volume 6.5 fL (7.4-10.4); Platelet Count 363 thou/uL (130-400); RBC Distribution Width 14.5 % (11.5-14.5)
[2021-04-04] MEDS: Gabapentin 100 MG CAP PO SCH ×2 (08:27→19:12)
[2021-04-04] MEDS: Folic Acid 1 MG TAB PO SCH (08:28)
[2021-04-04] MEDS: Cyanocobalamin (Vitamin B-12) 1,000 MCG TAB PO SCH (08:28)
[2021-04-04] MEDS: Lisinopril 20 MG TAB PO SCH (08:28)
[2021-04-04] MEDS: Escitalopram Oxalate 10 mg Tablet PO SCH (08:28)
[2021-04-04] MEDS: Pantoprazole 40 MG VIAL IVP SCH ×2 (08:29→20:41)
[2021-04-04 08:57] LABS: #Eosinphils 0.1 thou/uL (0.0-0.7); #Monocytes 0.9 thou/uL (0.11-0.59); %Basophils 0.1 % (0.0-1.0); %Eosinophils 0.6 % (0.0-10.0); %Lymphocytes 10.3 % (21.0-51.0); %Monocytes 8.6 % (0.0-10.0); %Neutrophils 80.4 % (42.0-75.0)
[2021-04-04 08:58] LABS: Band 9 % (5-11); Lymphocytes 8 % (21-51); MDiff Complete? YES; Monocytes 12 % (0-10); Neutrophil 71 % (42-75); Platelet Morphology Comment Appears Adequate; RBC Morphology Normal
[2021-04-04] MEDS ORDERED: lamoTRIgine 25 MG TAB PO SCH (09:00)
[2021-04-04] MEDS: Lactated Ringer's 1,000 ML IV SCH (17:40)
[2021-04-04] MEDS: levETIRAcetam in NS 500 MG in Premix Bag 1 BAG IVPB SCH (20:41)
[2021-04-05] MEDS: Lactated Ringer's 1,000 ML IV SCH ×2 (01:35→07:39)
[2021-04-05 06:04] LABS: #Basophils 0.1 thou/uL (0.0-0.2); #Eosinphils 0.2 thou/uL (0.0-0.7); #Monocytes 0.8 thou/uL (0.11-0.59); #Neutrophils 4.4 thou/uL (1.40-6.50); %Basophils 0.9 % (0.0-1.0); %Eosinophils 3.6 % (0.0-10.0); %Lymphocytes 14.9 % (21.0-51.0); %Monocytes 12.4 % (0.0-10.0); %Neutrophils 68.2 % (42.0-75.0); Hemoglobin 10.2 g/dL (14.0-18.0); Mean Corpuscular HGB CONC 32.6 g/dL (32.0-36.0); Mean Corpuscular Hemoglobin 34.5 pg (27.0-31.0); Mean Platelet Volume 6.7 fL (7.4-10.4); Platelet Count 354 thou/uL (130-400); RBC Distribution Width 14.4 % (11.5-14.5); Red Blood Cell (RBC) Count 2.97 mill/uL (4.70-6.10); White Blood Cell (WBC) Count 6.4 thou/uL (4.8-10.8)
[2021-04-05 06:26] LABS: Anion Gap 11 mmol/L (10-20); BUN (Urea Nitrogen) 24 mg/dL (8.4-25.7); Calc. Creatinine Clearance 91 mL/min (70-130); Calcium 9.4 mg/dL (7.8-10.44); Carbon Dioxide 22 mmol/L (23-31); Chloride 111 mmol/L (98-107); Glucose 93 mg/dL (83-110); Potassium 3.5 mmol/L (3.5-5.1); Sodium 140 mmol/L (136-145)
[2021-04-05] MEDS: Lisinopril 20 MG TAB PO SCH ×2 (07:40→17:14)
[2021-04-05] MEDS: Folic Acid 1 MG TAB PO SCH ×2 (07:40→17:15)
[2021-04-05] MEDS: Gabapentin 100 MG CAP PO SCH ×3 (07:40→21:45)
[2021-04-05] MEDS: Escitalopram Oxalate 10 mg Tablet PO SCH ×2 (07:40→17:14)
[2021-04-05] MEDS: Cyanocobalamin (Vitamin B-12) 1,000 MCG TAB PO SCH ×2 (07:40→17:14)
[2021-04-05] MEDS: Pantoprazole 40 MG VIAL IVP SCH ×2 (09:19→21:42)
[2021-04-05] MEDS: levETIRAcetam in NS 500 MG in Premix Bag 1 BAG IVPB SCH ×2 (09:19→22:27)
[2021-04-05] MEDS: Acetaminophen 325 MG TAB PO PRN (23:38)
[2021-04-06 06:30] LABS: #Basophils 0.1 thou/uL (0.0-0.2); #Eosinphils 0.2 thou/uL (0.0-0.7); #Lymphocytes 1.2 thou/uL (1.20-3.40); #Monocytes 0.7 thou/uL (0.11-0.59); #Neutrophils 4.9 thou/uL (1.40-6.50); %Basophils 0.8 % (0.0-1.0); %Eosinophils 3.2 % (0.0-10.0); %Lymphocytes 16.4 % (21.0-51.0); %Monocytes 9.8 % (0.0-10.0); %Neutrophils 69.8 % (42.0-75.0); Hemoglobin 9.8 g/dL (14.0-18.0); Mean Corpuscular HGB CONC 32.3 g/dL (32.0-36.0); Mean Corpuscular Hemoglobin 33.9 pg (27.0-31.0); Mean Platelet Volume 6.5 fL (7.4-10.4); Platelet Count 344 thou/uL (130-400); RBC Distribution Width 14.1 % (11.5-14.5); White Blood Cell (WBC) Count 7.1 thou/uL (4.8-10.8)
[2021-04-06 06:44] LABS: Anion Gap 13 mmol/L (10-20); BUN (Urea Nitrogen) 19 mg/dL (8.4-25.7); Calc. Creatinine Clearance 90 mL/min (70-130); Calcium 9.7 mg/dL (7.8-10.44); Carbon Dioxide 23 mmol/L (23-31); Chloride 107 mmol/L (98-107); Glucose 92 mg/dL (83-110); Potassium 3.4 mmol/L (3.5-5.1); Sodium 140 mmol/L (136-145)
[2021-04-06] MEDS: Folic Acid 1 MG TAB PO SCH (08:42)
[2021-04-06] MEDS: Cyanocobalamin (Vitamin B-12) 1,000 MCG TAB PO SCH (08:42)
[2021-04-06] MEDS: Escitalopram Oxalate 10 mg Tablet PO SCH (08:42)
[2021-04-06] MEDS: Pantoprazole 40 MG VIAL IVP SCH ×2 (08:42→20:11)
[2021-04-06] MEDS: Lisinopril 20 MG TAB PO SCH (08:42)
[2021-04-06] MEDS: Gabapentin 100 MG CAP PO SCH (08:42)
[2021-04-06] MEDS: levETIRAcetam in NS 500 MG in Premix Bag 1 BAG IVPB SCH ×2 (08:44→21:28)
[2021-04-07] MEDS ORDERED: Labetalol HCl 100 MG/20 ML VIAL SLOW IVP PRN (04:08)
[2021-04-07] MEDS ORDERED: hydrALAZINE 20 MG/ML VIAL SLOW IVP SCH (05:00)
[2021-04-07] MEDS ORDERED: Folic Acid 1 MG TAB PO SCH (09:00)
[2021-04-07] MEDS: levETIRAcetam in NS 500 MG in Premix Bag 1 BAG IVPB SCH ×2 (09:23→22:03)
[2021-04-07] MEDS: Pantoprazole 40 MG VIAL IVP SCH ×2 (09:26→21:58)
[2021-04-07] MEDS: Multivit, Therapeutic 1 TAB PO SCH (09:28)
[2021-04-07] MEDS: Cyanocobalamin (Vitamin B-12) 1,000 MCG TAB PO SCH (09:28)
[2021-04-07] MEDS: Escitalopram Oxalate 10 mg Tablet PO SCH (09:29)
[2021-04-07] MEDS: Thiamine 100 MG TAB PO SCH (09:29)
[2021-04-07] MEDS: Folic Acid 1 MG TAB PO SCH (09:29)
[2021-04-07] MEDS: Lisinopril 20 MG TAB PO SCH (09:29)
[2021-04-07] MEDS ORDERED: Lisinopril/Hydrochlorothiazide 20 mg/12.5 mg Tablet PO SCH (09:33)
[2021-04-07] MEDS ORDERED: Hydrochlorothiazide 25 MG TAB PO SCH (09:34)
[2021-04-07] MEDS: Melatonin 3 MG TAB PO SCH (21:58)
[2021-04-08] MEDS: levETIRAcetam in NS 500 MG in Premix Bag 1 BAG IVPB SCH ×2 (09:02→22:02)
[2021-04-08] MEDS: Thiamine 100 MG TAB PO SCH (09:05)
[2021-04-08] MEDS: Multivit, Therapeutic 1 TAB PO SCH (09:05)
[2021-04-08] MEDS: Pantoprazole 40 MG VIAL IVP SCH ×2 (09:05→22:03)
[2021-04-08] MEDS: Folic Acid 1 MG TAB PO SCH (09:05)
[2021-04-08] MEDS: Cyanocobalamin (Vitamin B-12) 1,000 MCG TAB PO SCH (09:05)
[2021-04-08] MEDS: Lisinopril/Hydrochlorothiazide 20 mg/12.5 mg Tablet PO SCH (09:06)
[2021-04-08] MEDS: Escitalopram Oxalate 10 mg Tablet PO SCH (09:06)
[2021-04-08] MEDS: Melatonin 3 MG TAB PO SCH (17:27)
[2021-04-08] MEDS: Haloperidol 5 MG TAB PO SCH ×2 (20:35→22:04)
[2021-04-08 21:45] LABS: Hemoglobin 10.5 g/dL (14.0-18.0)
[2021-04-08 22:07] LABS: Anion Gap 14 mmol/L (10-20); BUN (Urea Nitrogen) 14 mg/dL (8.4-25.7); Calc. Creatinine Clearance 82 mL/min (70-130); Calcium 9.2 mg/dL (7.8-10.44); Carbon Dioxide 24 mmol/L (23-31); Chloride 103 mmol/L (98-107); Glucose 111 mg/dL (83-110); Potassium 3.6 mmol/L (3.5-5.1); Sodium 137 mmol/L (136-145)
[2021-04-09] MEDS: levETIRAcetam in NS 500 MG in Premix Bag 1 BAG IVPB SCH ×2 (09:29→21:50)
[2021-04-09] MEDS: Pantoprazole 40 MG VIAL IVP SCH ×2 (09:32→21:52)
[2021-04-09] MEDS: Multivit, Therapeutic 1 TAB PO SCH (09:59)
[2021-04-09] MEDS: Thiamine 100 MG TAB PO SCH (09:59)
[2021-04-09] MEDS: Cyanocobalamin (Vitamin B-12) 1,000 MCG TAB PO SCH (09:59)
[2021-04-09] MEDS: Folic Acid 1 MG TAB PO SCH (09:59)
[2021-04-09] MEDS: Lisinopril/Hydrochlorothiazide 20 mg/12.5 mg Tablet PO SCH (09:59)
[2021-04-09] MEDS: Escitalopram Oxalate 10 mg Tablet PO SCH (09:59)
[2021-04-09] MEDS: Melatonin 3 MG TAB PO SCH (17:22)
[2021-04-09 21:46] LABS: SARS-CoV-2 PCR by NAA Not Detected (NotDetected)
[2021-04-10] MEDS: Haloperidol 5 MG TAB PO SCH ×2 (01:47→22:26)
[2021-04-10 07:59] LABS: Hemoglobin 10.7 g/dL (14.0-18.0)
[2021-04-10 08:20] LABS: Anion Gap 13 mmol/L (10-20); BUN (Urea Nitrogen) 13 mg/dL (8.4-25.7); Calc. Creatinine Clearance 85 mL/min (70-130); Calcium 9.2 mg/dL (7.8-10.44); Carbon Dioxide 26 mmol/L (23-31); Chloride 102 mmol/L (98-107); Glucose 95 mg/dL (83-110); Potassium 3.1 mmol/L (3.5-5.1); Sodium 138 mmol/L (136-145)
[2021-04-10] MEDS: levETIRAcetam in NS 500 MG in Premix Bag 1 BAG IVPB SCH (08:48)
[2021-04-10] MEDS: Cyanocobalamin (Vitamin B-12) 1,000 MCG TAB PO SCH (08:49)
[2021-04-10] MEDS: Lisinopril/Hydrochlorothiazide 20 mg/12.5 mg Tablet PO SCH (08:49)
[2021-04-10] MEDS: Multivit, Therapeutic 1 TAB PO SCH (08:49)
[2021-04-10] MEDS: Folic Acid 1 MG TAB PO SCH (08:49)
[2021-04-10] MEDS: Escitalopram Oxalate 10 mg Tablet PO SCH (08:49)
[2021-04-10] MEDS: Pantoprazole 40 MG VIAL IVP SCH (08:49)
[2021-04-10] MEDS: Thiamine 100 MG TAB PO SCH (08:49)
[2021-04-10] MEDS ORDERED: Potassium Chloride 20 MEQ in Premix Bag 1 BAG IVPB SCH (10:45)
[2021-04-10] MEDS: Melatonin 3 MG TAB PO SCH (18:34)
[2021-04-10] MEDS: levETIRAcetam 500 MG TAB PO SCH (22:25)
[2021-04-11] MEDS: Folic Acid 1 MG TAB PO SCH (09:16)
[2021-04-11] MEDS: levETIRAcetam 500 MG TAB PO SCH ×2 (09:16→20:18)
[2021-04-11] MEDS: Cyanocobalamin (Vitamin B-12) 1,000 MCG TAB PO SCH (09:17)
[2021-04-11] MEDS: Multivit, Therapeutic 1 TAB PO SCH (09:17)
[2021-04-11] MEDS: Lisinopril/Hydrochlorothiazide 20 mg/12.5 mg Tablet PO SCH (09:17)
[2021-04-11] MEDS: Escitalopram Oxalate 10 mg Tablet PO SCH (09:17)
[2021-04-11] MEDS: Thiamine 100 MG TAB PO SCH (09:18)
[2021-04-11] MEDS ORDERED: Polyethylene Glycol 3350 17 GM Packet PO SCH (12:45)
[2021-04-11] MEDS: Melatonin 3 MG TAB PO SCH (18:06)
[2021-04-11] MEDS: Haloperidol 5 MG TAB PO SCH (20:18)
[2021-04-12 08:00] VITALS: TEMP 98.1
[2021-04-12] MEDS: Escitalopram Oxalate 10 mg Tablet PO SCH (08:44)
[2021-04-12] MEDS: Thiamine 100 MG TAB PO SCH (08:45)
[2021-04-12] MEDS: Folic Acid 1 MG TAB PO SCH (08:45)
[2021-04-12] MEDS: Cyanocobalamin (Vitamin B-12) 1,000 MCG TAB PO SCH (08:45)
[2021-04-12] MEDS: levETIRAcetam 500 MG TAB PO SCH (08:45)
[2021-04-12] MEDS: Multivit, Therapeutic 1 TAB PO SCH (08:45)
[2021-04-12] MEDS: Lisinopril/Hydrochlorothiazide 20 mg/12.5 mg Tablet PO SCH (08:49)
[2021-04-12] MEDS ORDERED: Polyethylene Glycol 3350 17 GM Packet PO SCH (09:00)
[2021-04-12 09:14] LABS: Anion Gap 11 mmol/L (10-20); BUN (Urea Nitrogen) 17 mg/dL (8.4-25.7); Calc. Creatinine Clearance 75 mL/min (70-130); Calcium 9.4 mg/dL (7.8-10.44); Carbon Dioxide 27 mmol/L (23-31); Chloride 101 mmol/L (98-107); Glucose 100 mg/dL (83-110); Potassium 3.4 mmol/L (3.5-5.1); Sodium 136 mmol/L (136-145)
[2021-04-12] MEDS ORDERED: Potassium Chloride 20 MEQ TAB PO SCH ×2 (10:48→11:30)
[2021-04-12 11:57] VITALS: BP 113/67
[2021-04-12] MEDS: Melatonin 3 MG TAB PO SCH (18:21)
[2021-04-13] MEDS ORDERED: Potassium Chloride 20 MEQ TAB PO SCH (08:00)
== END 2021-04-12 18:08 | DRG 56 ==
LOC: ERS 23:20 → T4-A 03-30 02:06 → OBSVTOIN 03-31 18:01 → T4-A 04-07 08:58
PROVIDERS: ADMIT Family Medicine; ATTEND Family Medicine
PROC: 3E03329 Introduction of Other Anti-infective into Peripheral Vein, Percutaneous Approach (ICD-10-PCS; 2021-03-31)
PROC: 0DB98ZX Excision of Duodenum, Via Natural or Artificial Opening Endoscopic, Diagnostic (ICD-10-PCS; principal; 2021-04-03)
PROC: 0DB78ZX Excision of Stomach, Pylorus, Via Natural or Artificial Opening Endoscopic, Diagnostic (ICD-10-PCS; 2021-04-03)
PROC: 0DB38ZX Excision of Lower Esophagus, Via Natural or Artificial Opening Endoscopic, Diagnostic (ICD-10-PCS; 2021-04-03)
DX: G31.83 Neurocognitive disorder with Lewy bodies (principal); K20.81 Other esophagitis with bleeding; K25.4 Chronic or unspecified gastric ulcer with hemorrhage; K26.4 Chronic or unspecified duodenal ulcer with hemorrhage; A41.9 Sepsis, unspecified organism; G93.41 Metabolic encephalopathy; N39.0 Urinary tract infection, site not specified; G40.209 Localization-related (focal) (partial) symptomatic epilepsy and epileptic syndromes with complex partial seizures, not intractable, without status epilepticus; F05 Delirium due to known physiological condition; F02.81 Dementia in other diseases classified elsewhere, unspecified severity, with behavioral disturbance; Z20.822 Contact with and (suspected) exposure to COVID-19; F45.8 Other somatoform disorders; F32.A Depression, unspecified; N40.0 Benign prostatic hyperplasia without lower urinary tract symptoms; F10.10 Alcohol abuse, uncomplicated; G40.909 Epilepsy, unspecified, not intractable, without status epilepticus; H91.90 Unspecified hearing loss, unspecified ear; D53.9 Nutritional anemia, unspecified; R19.5 Other fecal abnormalities; D69.6 Thrombocytopenia, unspecified; K44.9 Diaphragmatic hernia without obstruction or gangrene; R63.0 Anorexia; Z28.21 Immunization not carried out because of patient refusal; Z79.899 Other long term (current) drug therapy; Z90.49 Acquired absence of other specified parts of digestive tract; Z98.890 Other specified postprocedural states; Z87.891 Personal history of nicotine dependence; Z85.46 Personal history of malignant neoplasm of prostate; Z68.24 Body mass index [BMI] 24.0-24.9, adult
CPT/HCPCS: 36415; 36416; 70450; 70551; 74230; 80048; 80053; 80177; 81001; 81003; 81015; 82140; 82274; 82607; 82746; 83605; 84425; 85014; 85018; 85025; 85027; 85610; 85730; 86850; 86900; 86901; 87077; 87086; 87186; 88305; 88312; 88341; 88342; 93005; 95816; 95819; 95957; 96372; 96374; 96375; 96376; C9113; G0378; J0360; J0696; J1630; J1650; J1885; J1953; J2704; J3411; J3480; J3486; J3490; J7050; J7120; U0002; U0003; U0005